=== PATIENT | female | born 1985 | race Caucasian/White ===

== ENCOUNTER 2017-04-14 11:16 | Emergency (ER) | payer OTHER ==
[2017-04-14 11:29] VITALS: BP 133/80
--- NOTE | 2017-04-14 12:26 | ED Physician Documentation ---
PD HPI LOWER EXT INJURY - Stated complaint Stated Complaint: LEFT FOOT INJ - Chief complaint Chief Complaint: Ext Problem - History obtained from History obtained from: Patient - History of Present Illness PD HPI LOW EXT INJURY LOCATION: Left, Foot Type of injury: Twist (inversion, when stepped into uneven groun area.) Timing - onset: How many days ago (2) Timing - duration: Days (2) Timing - details: Abrupt onset, Still present Worsened by: Moving, Palpating, Other (walking) Associated symptoms: Swelling. No: Weakness, Numbness Similar symptoms before: Has not had sx before Recently seen: Not recently seen PD PAST MEDICAL HISTORY - Allergies Allergies/Adverse Reactions: Allergies Allergy/AdvReac Type Severity Reaction Status Date / Time No Known Drug Allergies Allergy Verified 04/14/17 11:29 PD ED PE NORMAL - Vitals Vital signs reviewed: Yes - General General: Alert and oriented X 3, Well developed/nourished - Derm Derm: Normal color, Warm and dry - Extremities Extremities: Other (good color and cap refill in toes. Lateral left foot proximally with tenderness and mild swelling. No defromity. ) - Neuro Neuro: No motor deficit, No sensory deficit Results - Vitals Vitals: Vital Signs - 24 hr 04/14/17 11:26 Temperature 36.6 C Heart Rate 81 Respiratory 18 Rate Blood Pressure 133/80 H O2 Saturation 99 Oxygen O2 Source Room air - Rads (name of study) foot Radiology: Prelim report reviewed (no fracture) PD MEDICAL DECISION MAKING - ED course Complexity details: reviewed results (no fracture; sprain. Offered post op shoe for support. ), considered differential, d/w patient Departure - Departure Disposition: 01 Home, Self Care Clinical Impression: Sprain of left foot Qualifiers: Encounter type: initial encounter Qualified Code(s): S93.602A - Unspecified sprain of left foot, initial encounter Condition: Stable Record reviewed to determine appropriate education?: Yes Instructions: ED Sprain Foot Comments: Firm soled shoe or postop shoe for comfort. Tylenol or ibuprofen for pain. Activity as able and tolerated. This will likely take a week or 2 to get better. Recheck if not better during that time. Discharge Date/Time: 04/14/17 13:10
--- NOTE | 2017-04-14 12:32 | XRAY Preliminary Report ---
Exam: XR Foot 3 View LT IMPRESSION: 1. No acute osseous abnormalities. [facility] SITE ID: [id number]
--- NOTE | 2017-04-14 12:35 | XRAY Report ---
EXAM: LEFT FOOT RADIOGRAPHY EXAM DATE: 04/14/2017 12:18 PM. CLINICAL HISTORY: Left foot injury. COMPARISON: None. TECHNIQUE: 3 views. FINDINGS: Bones: No acute fracture or bony lesion. Posterior calcaneal spur. Joints: Normal. No subluxations. Soft Tissues: No radiopaque foreign bodies. Soft tissue swelling. IMPRESSION: 1. No acute osseous abnormalities. [facility] Referring Provider Line: [phone] SITE ID: [id number]
== END 2017-04-14 13:10 | disposition home or self-care (01) ==
LOC: ED 11:16
DX: S93.602A Unspecified sprain of left foot, initial encounter (principal); X58.XXXA Exposure to other specified factors, initial encounter
CPT/HCPCS: 99283

== ENCOUNTER 2017-12-19 09:20 | Outpatient (CLI) | payer OTHER ==
[2017-12-19 17:47] LABS: BASOPHILS % (AUTO) 0.3 %; EOSINOPHILS % (AUTO) 0.6 %; HGB - HEMOGLOBIN 13.5 g/dL (12.0-16.0); LYMPHOCYTES % (AUTO) 33.8 %; MEAN CORPUSCULAR HEMOGLOBIN 28.3 pg (27.0-31.0); MEAN CORPUSCULAR HGB CONC 33.4 g/dL (32.0-36.0); MEAN CORPUSCULAR VOLUME 84.8 fL (81.0-99.0); MEAN PLATELET VOLUME 8.6 fL (7.9-10.8); MONOCYTES # (AUTO) 0.6 10^3/uL (0.0-1.0); MONOCYTES % (AUTO) 9.3 %; NEUTROPHILS # (AUTO) 3.3 10^3/uL (1.5-6.6); PLT - PLATELET COUNT 242 10^3/uL (130-450); RED BLOOD COUNT 4.76 10^6/uL (4.20-5.40); RED CELL DISTRIBUTION WIDTH 12.9 % (12.0-15.0)
[2017-12-19 18:22] LABS: ALBUMIN 4.1 g/dL (3.2-5.5); ALBUMIN/GLOBULIN RATIO 1.3 (1.0-2.2); ALKALINE PHOSPHATASE 77 IU/L (42-121); ALT ALANINE AMINOTRANSFERASE 15 IU/L (10-60); AST ASPARTATE AMINOTRANSFERASE 17 IU/L (10-42); BILIRUBIN,TOTAL 0.6 mg/dL (0.2-1.0); BUN - BLOOD UREA NITROGEN 7 mg/dL (6-20); CALCIUM 8.7 mg/dL (8.5-10.3); CARBON DIOXIDE - CO2 24 mmol/L (21-32); CHLORIDE 105 mmol/L (101-111); CHOL/HDL RATIO 6.5 (<4.4); CHOLESTEROL 216 mg/dL; CREATININE 0.6 mg/dL (0.4-1.0); GFR - MDRD 116 (>89); GLUCOSE 91 mg/dL (70-100); HDL CHOLESTEROL 33 mg/dL; LDL CHOLESTEROL,CALCULATED 164 mg/dL; SODIUM 135 mmol/L (135-145); TOTAL PROTEIN 7.3 g/dL (6.7-8.2); VLDL CHOLESTEROL 19 mg/dL
== END 2017-12-19 09:21 | disposition home or self-care (01) ==
LOC: LAB.F 09:20
PROVIDERS: ATTEND Physician Assistant Medical
DX: Z00.00 Encounter for general adult medical examination without abnormal findings (principal)
CPT/HCPCS: 36415; 80053; 80061; 82306; 83721; 84443; 85025

== ENCOUNTER 2020-07-06 14:57 | Outpatient (CLI) | payer OTHER ==
[2020-07-06 15:33] LABS: BASOPHILS % (AUTO) 0.5 %; EOSINOPHILS % (AUTO) 0.5 %; HGB - HEMOGLOBIN 14.1 g/dL (12.0-16.0); LYMPHOCYTES # (AUTO) 1.7 10^3/uL (1.5-3.5); LYMPHOCYTES % (AUTO) 26.4 %; MEAN CORPUSCULAR HEMOGLOBIN 28.4 pg (27.0-31.0); MEAN CORPUSCULAR HGB CONC 33.2 g/dL (32.0-36.0); MEAN CORPUSCULAR VOLUME 85.5 fL (81.0-99.0); MONOCYTES # (AUTO) 0.4 10^3/uL (0.0-1.0); MONOCYTES % (AUTO) 5.3 %; NEUTROPHILS # (AUTO) 4.4 10^3/uL (1.5-6.6); PLT - PLATELET COUNT 246 10^3/uL (130-450); RED BLOOD COUNT 4.97 10^6/uL (4.20-5.40); RED CELL DISTRIBUTION WIDTH 12.7 % (12.0-15.0); WHITE BLOOD COUNT 6.6 x10^3/uL (4.8-10.8)
[2020-07-06 15:56] LABS: % IRON SATURATION 17 % (20-50); ALBUMIN 4.7 g/dL (3.2-5.5); ALBUMIN/GLOBULIN RATIO 1.4 (1.0-2.2); ALKALINE PHOSPHATASE 59 IU/L (42-121); ALT ALANINE AMINOTRANSFERASE 22 IU/L (10-60); AST ASPARTATE AMINOTRANSFERASE 20 IU/L (10-42); BILIRUBIN,TOTAL 1.1 mg/dL (0.2-1.0); BUN - BLOOD UREA NITROGEN 9 mg/dL (6-20); CALCIUM 9.3 mg/dL (8.5-10.3); CARBON DIOXIDE - CO2 22 mmol/L (21-32); CHLORIDE 107 mmol/L (101-111); CHOL/HDL RATIO 7.6 (<4.4); CHOLESTEROL 212 mg/dL; CREATININE 0.7 mg/dL (0.4-1.0); GLUCOSE 87 mg/dL (70-100); HDL CHOLESTEROL 28 mg/dL; IRON 62 ug/dL (28-170); LDL CHOLESTEROL,CALCULATED 163 mg/dL; LDL/HDL RATIO 5.8 (<4.4); SODIUM 139 mmol/L (135-145); TOTAL IRON BINDING CAPACITY 358 ug/dL (250-450); TRANSFERRIN 256 mg/dL (192-382); VLDL CHOLESTEROL 21 mg/dL
== END 2020-07-06 14:58 | disposition home or self-care (01) ==
LOC: LAB 14:57
PROVIDERS: ATTEND Obstetrics & Gynecology
DX: Z00.00 Encounter for general adult medical examination without abnormal findings (principal); K52.9 Noninfective gastroenteritis and colitis, unspecified; E55.9 Vitamin D deficiency, unspecified; Z31.69 Encounter for other general counseling and advice on procreation; Z13.1 Encounter for screening for diabetes mellitus
CPT/HCPCS: 36415; 80053; 80061; 82306; 83540; 83721; 84443; 84466; 85025; 86762; 86787

== ENCOUNTER 2020-07-12 09:09 | Outpatient (CLI) | payer OTHER | END 2020-07-12 09:10 | disposition home or self-care (01) | LOC: LAB 09:09 | PROVIDERS: ATTEND Obstetrics & Gynecology | DX: K51.50 Left sided colitis without complications (principal); Z20.828 Contact with and (suspected) exposure to other viral communicable diseases; Z13.1 Encounter for screening for diabetes mellitus | CPT/HCPCS: 36415; 82951 ==

== ENCOUNTER 2020-07-12 11:28 | Outpatient (CLI) | payer OTHER | END 2020-07-12 11:29 | disposition home or self-care (01) | LOC: COV 11:28 | PROVIDERS: ATTEND Internal Medicine Gastroenterology | DX: K51.50 Left sided colitis without complications (principal); Z20.828 Contact with and (suspected) exposure to other viral communicable diseases ==

== ENCOUNTER 2020-12-08 08:00 | Outpatient (CLI) | payer OTHER ==
[2020-12-08 15:59] LABS: MUDS CUTOFF CONCENTRATIONS CUTOFF CONC BELOW:
[2020-12-08 16:10] LABS: BILIRUBIN,URINE NEGATIVE (NEGATIVE); GLUCOSE, URINE (UA) NEGATIVE (NEGATIVE); KETONES,URINE (UA) NEGATIVE (NEGATIVE); LEUKOCYTE ESTERASE, URINE TRACE (NEGATIVE); NITRITE,URINE NEGATIVE (NEGATIVE); OCCULT BLOOD,URINE NEGATIVE (NEGATIVE); PROTEIN,URINE NEGATIVE (NEGATIVE); UROBILINOGEN,URINE 0.2 (NORMAL) E.U./dL (NORMAL)
[2020-12-08 16:20] LABS: AMPHETAMINE SCREEN,URINE NEGATIVE (NEGATIVE); BACTERIA,URINE None Seen /HPF (None Seen); BARBITURATE SCREEN,UR NEGATIVE (NEGATIVE); BENZODIAZEPINES SCREEN, URINE NEGATIVE (NEGATIVE); CLARITY,URINE CLEAR (CLEAR); COCAINE SCREEN URINE NEGATIVE (NEGATIVE); METHADONE SCREEN, URINE NEGATIVE (NEGATIVE); METHAMPHETAMINES SCREEN, URINE NEGATIVE (NEGATIVE); OPIATE SCREEN, URINE NEGATIVE (NEGATIVE); OXYCODONE SCREEN, URINE NEGATIVE (NEGATIVE); PROPOXYPHENE SCREEN, URINE NEGATIVE (NEGATIVE); RBC,URINE None Seen /HPF (0-5); SQUAMOUS EPITHELIAL CELL,UR RARE Squamous (<= Few); THC CANNABINOID SCREEN, URINE NEGATIVE (NEGATIVE); TRICYCLIC ANTIDEPRESSANT,URINE NEGATIVE (NEGATIVE); WBC,URINE 0-3 /HPF (0-5)
== END 2020-12-08 23:59 | disposition home or self-care (01) ==
LOC: LAB.R 08:00
PROVIDERS: ATTEND Advanced Practice Midwife
DX: Z32.01 Encounter for pregnancy test, result positive (principal)
CPT/HCPCS: 80306; 81001; 87086

== ENCOUNTER 2020-12-29 09:38 | Outpatient (CLI) | payer OTHER ==
--- NOTE | 2020-12-29 16:04 | Ultrasound Report ---
PROCEDURE: OB First Trimester w/TV INDICATIONS: POSITIVE TEST OUTSIDE/PRIOR DATING DATA: Last menstrual period (LMP): 11/08/2020. LMP-based estimated date of delivery (BK): 08/15/2021. First dating scan (date and location): 12/29/2020. Estimated date of delivery (BK) from first dating scan: 08/13/2021. TECHNIQUE: Real-time scanning was performed of the fetus and maternal pelvic organs, with image documentation. Endovaginal scanning was also performed to better visualize the fetus and maternal ovaries. COMPARISON: None FINDINGS: Embryo: There is a single living intrauterine gestation with a heart rate of 153 bpm. [place] mp length is 14 mm, corresponding to a 7 week 4 day gestation. Measurement variability in dating: +/- 4 weeks by LMP, +/- 7 days by mean sac diameter (use before 6 weeks gestation if crown-rump length not able to be measured), +/- 5 days by crown-rump length (6-12 weeks gestation). Possible small 6 mm diameter left uterine fibroid. Possible small 11 mm perigesta tional hemorrhage. Maternal organs: Ovaries left ovarian corpus luteal cyst. IMPRESSION: 1. Single living intrauterine gestation. 2. Possible small para gestational hemorrhage. 3. Small uterine fibroid. Reviewed by: Orquidea Poe MD on 12/29/2020 4:03 PM PDT Approved by: Orquidea Poe MD on 12/29/2020 4:03 PM PDT Station ID: [id number]
== END 2020-12-29 09:39 | disposition home or self-care (01) ==
LOC: DI 09:38
PROVIDERS: ATTEND Advanced Practice Midwife
DX: O34.11 Maternal care for benign tumor of corpus uteri, first trimester (principal); D25.9 Leiomyoma of uterus, unspecified; O34.81 Maternal care for other abnormalities of pelvic organs, first trimester; N83.12 Corpus luteum cyst of left ovary; Z3A.01 Less than 8 weeks gestation of pregnancy

== ENCOUNTER 2021-02-09 09:08 | Outpatient (CLI) | payer OTHER ==
[2021-02-09 09:39] LABS: BASOPHILS % (AUTO) 0.3 %; EOSINOPHILS # (AUTO) 0.1 10^3/uL (0.0-0.7); EOSINOPHILS % (AUTO) 0.6 %; HGB - HEMOGLOBIN 12.8 g/dL (12.0-16.0); LYMPHOCYTES % (AUTO) 25.6 %; MEAN CORPUSCULAR HEMOGLOBIN 29.5 pg (27.0-31.0); MEAN CORPUSCULAR HGB CONC 34.6 g/dL (32.0-36.0); MEAN CORPUSCULAR VOLUME 85.3 fL (81.0-99.0); MEAN PLATELET VOLUME 10.4 fL (7.9-10.8); MONOCYTES # (AUTO) 0.5 10^3/uL (0.0-1.0); NEUTROPHILS # (AUTO) 5.1 10^3/uL (1.5-6.6); NEUTROPHILS % (AUTO) 66.4 %; PLT - PLATELET COUNT 226 10^3/uL (130-450); RED BLOOD COUNT 4.34 10^6/uL (4.20-5.40); RED CELL DISTRIBUTION WIDTH 12.6 % (12.0-15.0); WHITE BLOOD COUNT 7.7 x10^3/uL (4.8-10.8)
[2021-02-10 07:51] LABS: HIV AG/AB 4TH GEN NON-REACTIVE (NON-REACTIVE)
[2021-02-10 12:17] LABS: HEPATITIS B SURFACE ANTIGEN NON-REACTIVE (NON-REACTIVE); HEPATITIS C ANTIBODY NON-REACTIVE (NON-REACTIVE)
== END 2021-02-09 09:09 | disposition home or self-care (01) ==
LOC: LAB 09:08
PROVIDERS: ATTEND Obstetrics & Gynecology
DX: Z36.89 Encounter for other specified antenatal screening (principal)
CPT/HCPCS: 36415; 85025; 86592; 86762; 86803; 86850; 86900; 86901; 87340; 87389

== ENCOUNTER 2021-02-16 09:06 | Outpatient (CLI) | payer OTHER | END 2021-02-16 09:07 | disposition home or self-care (01) | LOC: LAB 09:06 | PROVIDERS: ATTEND Obstetrics & Gynecology | DX: O09.511 Supervision of elderly primigravida, first trimester (principal) | CPT/HCPCS: 86787 ==

== ENCOUNTER 2021-03-19 07:51 | Outpatient (CLI) | payer OTHER | END 2021-03-19 07:52 | disposition home or self-care (01) | LOC: LAB 07:51 | PROVIDERS: ATTEND Obstetrics & Gynecology | DX: O09.511 Supervision of elderly primigravida, first trimester (principal) | CPT/HCPCS: 81599 ==

== ENCOUNTER 2021-04-12 19:27 | Outpatient (CLI) | payer OTHER ==
--- NOTE | 2021-04-13 10:52 | Ultrasound Report ---
PROCEDURE: OB Detailed Eval INDICATIONS: SUPERVISION OF HIGH RISK OUTSIDE/PRIOR DATING DATA: Last menstrual period (LMP): 11/08/2020. LMP-based estimated date of delivery (BK): 08/15/2021. First dating scan (date and location): 12/29/2020. Estimated date of delivery (BK) from first dating scan: 08/13/2021. The below data below was generated using the 08/13/2021 BK of ultrasound dated 12/29/2020 TECHNIQUE: Real-time scanning was performed of the fetus, with image documentation and biometric measurements. Endovaginal scanning: No COMPARISON: Prior OB ultrasound dated 12/29/2020 FINDINGS: General: A single living intrauterine gestation is present. Presentation: Breech Placenta: Placental position is anterior, without previa. Amniotic fluid index: 17.9 cm, normal for gestational age. heart rate: 152 beats per minute. Maternal cervical canal: 3.9 cm long; normal length is 2.5 cm or more. biometrics: Biparietal diameter: 22 weeks 6 days Head circumference: 23 weeks 4 days Abdominal circumference: 22 weeks 6 days Femur length: 22 weeks 6 days Estimated gestational age from initial scan: 22 weeks 3 days Composite gestational age from present scan: 22 weeks 6 days Estimated weight and percentile: 547 g; 69 percentile Measurement variability in biometric dating: +/- 10 days from 12-20 weeks gestation, +/- 2 weeks from 20-30 weeks gestation, +/- 3 weeks at 30 weeks gestation or later. Anatomic survey: Neuro: Ventricles are normal at less than 10 mm. Cisterna magna is normal at 3-11 mm. Cerebellum i s normal in size and morphology. Nuchal skin fold: Normal at less than 6 mm between 14 and 20 weeks gestational age. Face: Nose and lips, facial profile are normal. Spine: No evidence for spina bifida. Heart: 4-chambered heart is present, with normal ventricular outflow tracts. Diaphragm: Diaphragm is intact. Stomach: Left-sided stomach is present. Kidneys: Suboptimally visualized. Cord: 3 vessel cord has orthotopic insertion. Bladder: Normal in size. Extremities: All 4 extremities are visualized. IMPRESSION: 1. Single living IUP redemonstrated and interval growth is normal. 2. Kidneys not well visualized; otherwise normal anatomy. Follow-up recommended. Reviewed by: MOON Nava on 04/13/2021 10:50 AM PDT Approved by: Ilan Tran on 04/13/2021 10:50 AM PDT Station ID: [id number]
== END 2021-04-12 19:28 | disposition home or self-care (01) ==
LOC: DI 19:27
PROVIDERS: ATTEND Obstetrics & Gynecology
DX: O09.92 Supervision of high risk pregnancy, unspecified, second trimester (principal); Z3A.22 22 weeks gestation of pregnancy

== ENCOUNTER 2021-04-26 18:42 | Outpatient (CLI) | payer OTHER ==
--- NOTE | 2021-04-27 09:34 | Ultrasound Report ---
PROCEDURE: OB F/U or Repeat INDICATIONS: SUPERVISION OF HIGH RISK OUTSIDE/PRIOR DATING DATA: Last menstrual period (LMP): 11/08/2020. LMP-based estimated date of delivery (BK): 08/15/2021. First dating scan (date and location): 12/29/2020. Estimated date of delivery (BK) from first dating scan: 08/13/2021. The below data below was generated using the first trimester BK of 08/13/2021 TECHNIQUE: Real-time scanning was performed of the fetus, with image documentation and biometric measurements. Endovaginal scanning: Not performed COMPARISON: 12/29/2020, 04/12/2021 FINDINGS: General: A single living intrauterine gestation is present. Presentation: Variable Placenta: Placental position is anterior, without previa. Amniotic fluid index: 13.3 cm, normal for gestational age. heart rate: 145 beats per minute. Maternal cervical canal: Closed and 3.7 cm long; normal length is 2.5 cm or more. Other: Imaging of the kidneys demonstrates possible bilateral hydronephrosis with renal pelvis measuring 7 mm in the right and 8 mm on the left. No cystic changes in either renal fossa or perineph betsy fluid. The urinary bladder appears appropriate on the single given image. IMPRESSION: 1. Possible mild bilateral hydronephrosis. Follow-up in the third trimester is recommended. Reviewed by: Glenda Apodaca MD on 04/27/2021 9:33 AM PDT Approved by: Glenda Apodaca MD on 04/27/2021 9:33 AM PDT Station ID: [id number]
== END 2021-04-26 18:43 | disposition home or self-care (01) ==
LOC: DI 18:42
PROVIDERS: ATTEND Obstetrics & Gynecology
DX: O09.90 Supervision of high risk pregnancy, unspecified, unspecified trimester (principal)

== ENCOUNTER 2021-05-08 07:33 | Outpatient (CLI) | payer OTHER ==
[2021-05-08 09:06] LABS: HCT - HEMATOCRIT 35.7 % (37.0-47.0); HGB - HEMOGLOBIN 12.1 g/dL (12.0-16.0); MEAN CORPUSCULAR HEMOGLOBIN 29.8 pg (27.0-31.0); MEAN CORPUSCULAR HGB CONC 33.9 g/dL (32.0-36.0); MEAN CORPUSCULAR VOLUME 87.9 fL (81.0-99.0); MEAN PLATELET VOLUME 9.9 fL (7.9-10.8); RED BLOOD COUNT 4.06 10^6/uL (4.20-5.40); RED CELL DISTRIBUTION WIDTH 13.3 % (12.0-15.0); WHITE BLOOD COUNT 11.4 x10^3/uL (4.8-10.8)
== END 2021-05-08 07:34 | disposition home or self-care (01) ==
LOC: LAB 07:33
PROVIDERS: ATTEND Obstetrics & Gynecology
DX: O09.90 Supervision of high risk pregnancy, unspecified, unspecified trimester (principal)
CPT/HCPCS: 36415; 82950; 85027; 86850

== ENCOUNTER 2021-05-23 07:23 | Outpatient (CLI) | payer OTHER ==
[2021-05-23 07:51] LABS: GTT GLUCOSE,FASTING 85 mg/dL (70-100)
== END 2021-05-23 07:24 | disposition home or self-care (01) ==
LOC: LAB 07:23
PROVIDERS: ATTEND Obstetrics & Gynecology
DX: O09.90 Supervision of high risk pregnancy, unspecified, unspecified trimester (principal); O99.810 Abnormal glucose complicating pregnancy
CPT/HCPCS: 36415; 82951; 82952

== ENCOUNTER 2021-06-11 18:44 | Outpatient (CLI) | payer OTHER ==
[2021-06-11 20:01] VITALS: BP 111/64
--- NOTE | 2021-06-14 15:33 | PROCEDURE REPORT ---
- HPI Diagnosis/Indication for NST: Other (GDM and ulcerative colitis) Current EDU 08/15/21 Gestation 30 Weeks and 5 Days 1 Para 0 Vital Signs Temperature 98.3 F 06/11/21 20:00 Heart Rate 74 06/11/21 20:00 Respiratory Rate 18 06/11/21 20:00 Blood Pressure 111/64 06/11/21 20:00 O2 Saturation 100 06/11/21 20:00 Temperature 98.3 F 06/11/21 20:00 Heart Rate 74 06/11/21 20:00 Respiratory Rate 18 06/11/21 20:00 Blood Pressure 111/64 06/11/21 20:00 O2 Saturation 100 06/11/21 20:00 - NST Procedure NST Procedure Start Date 06/11/21 Start Time 19:55 Stop Time 20:40 Vibroacoustic Stimulation Used No Patient States Movement Yes EFM 135 mod dom[place]uez 15x15 accels no decels TOCO: quiet - Results and Plan Findings/Impression: Patient is a 35 yo at 30+5 with affected by ulcerative colitis and gestational diabetes, here for NST Cat I tracing Cont with twice weekly NST and weekly MARS DOS: 06/11/21 NST read 06/11/21 DX: IUP at 30+5 wga Ulcerative colitis GDM
== END 2021-06-11 20:45 | disposition home or self-care (01) ==
LOC: WFO 18:44 → FBP 19:44 → WFO 20:45
PROVIDERS: ATTEND Obstetrics & Gynecology
DX: O24.419 Gestational diabetes mellitus in pregnancy, unspecified control (principal); O99.613 Diseases of the digestive system complicating pregnancy, third trimester; K51.90 Ulcerative colitis, unspecified, without complications; Z3A.30 30 weeks gestation of pregnancy; O09.513 Supervision of elderly primigravida, third trimester; O35.8XX0 Maternal care for other (suspected) fetal abnormality and damage, not applicable or unspecified
CPT/HCPCS: 59025

== ENCOUNTER 2021-06-11 19:11 | Outpatient (CLI) | payer OTHER ==
--- NOTE | 2021-06-12 12:29 | Ultrasound Report ---
PROCEDURE: OB F/U or Repeat INDICATIONS: SUPERVISION OF HIGH RISK OUTSIDE/PRIOR DATING DATA: Last menstrual period (LMP): 11/08/2020. LMP-based estimated date of delivery (BK): 08/15/2021. First dating scan (date and location): 12/29/2020. Estimated date of delivery (BK) from first dating scan: 08/13/2021. The below data below was generated using the clinical BK of 08/13/2021 TECHNIQUE: Real-time scanning was performed of the fetus, with image documentation and biometric measurements. COMPARISON: OB ultrasound 12/29/2021, 04/26/2021 FINDINGS: General: A single living intrauterine gestation is present. Presentation: Vertex Placenta: Placental position is anterior, without previa. Amniotic fluid index: 14.3 cm, within normal limits for gestational age. Largest pocket 5.3 cm. heart rate: 155 beats per minute. Maternal cervical canal: 4.4 cm long; normal length is 2.5 cm or more. biometrics: Biparietal diameter: 8.0 cm 32 weeks 1 day Head circumference: 30.5 cm 34 weeks 0 days Abdominal circumference: 27.4 cm 31 weeks 3 days Femur length: 6.2 cm 32 weeks 2 days Estimated gestational age from initial scan: 31 weeks 0 days Composite gestational age from present scan: 32 weeks 3 days Estimated weight and percentile: 1887g 73rd percentile Measurement variability in biometric dating: +/- 10 days from 12-20 weeks gestation, +/- 2 weeks from 20-30 weeks gestation, +/- 3 weeks at 30 weeks gestation or more. Other: Left renal pelvocaliectasis remains present measuring 8 mm, unchanged from 04/26/2021. Right ki dney pelvocaliectasis has decreased to 4 mm compared to 7 mm on 04/26/2021. IMPRESSION: 1. Single live intrauterine . 2. Stable left renal pelvocaliectasis. Decreased prominence of right renal pelvocaliectasis. Reviewed by: Jo Ann Aguila MD on 06/12/2021 12:28 PM PDT Approved by: Jo Ann Aguila MD on 06/12/2021 12:28 PM PDT Station ID: [id number]
== END 2021-06-11 19:12 | disposition home or self-care (01) ==
LOC: DI 19:11
PROVIDERS: ATTEND Obstetrics & Gynecology
DX: O09.93 Supervision of high risk pregnancy, unspecified, third trimester (principal); O35.8XX0 Maternal care for other (suspected) fetal abnormality and damage, not applicable or unspecified; Z3A.32 32 weeks gestation of pregnancy

== ENCOUNTER 2021-06-24 11:14 | Outpatient (CLI) | payer OTHER ==
--- NOTE | 2021-06-24 13:30 | Ultrasound Report ---
PROCEDURE: OB Limited INDICATIONS: GESTATIONAL DIABETES OUTSIDE/PRIOR DATING DATA: Last menstrual period (LMP): 11/08/2020. LMP-based estimated date of delivery (BK): 08/15/2021. First dating scan (date and location): 12/29/2020. Estimated date of delivery (BK) from first dating scan: 08/13/2021. The below data below was generated using the ultrasound BK of 08/13/2021 TECHNIQUE: Real-time scanning was performed of the fetus, with image documentation. COMPARISON: OB ultrasound 04/26/2021, 04/30/2021, 04/12/2021 FINDINGS: A single living intrauterine gestation is present. Presentation: Vertex Placenta: Placental position is anterior, without previa. Amniotic fluid index: 14.8 cm cm, within normal limits for gestational age. Largest pocket 5.5 cm heart rate: 143 beats per minutes. Maternal cervical canal: 3.7 cm long; normal length is 2.5 cm or more. Estimated gestational age from initial scan: 32 weeks 6 days Miscellaneous: Left pelvocaliectasis measures 7 mm compared to 8 mm on prior exam. No visualized righ t renal pelvocaliectasis. IMPRESSION: 1. Single live intrauterine . 2. 7 mm left pelvocaliectasis compared to 8 mm on prior exam. No visualized right pelvocaliectasis. Reviewed by: Jo Ann Aguila MD on 06/24/2021 1:28 PM PDT Approved by: Jo Ann Aguila MD on 06/24/2021 1:28 PM PDT Station ID: [id number]
== END 2021-06-24 11:15 | disposition home or self-care (01) ==
LOC: DI 11:14
PROVIDERS: ATTEND Obstetrics & Gynecology
DX: O09.93 Supervision of high risk pregnancy, unspecified, third trimester (principal); O24.419 Gestational diabetes mellitus in pregnancy, unspecified control; Z3A.32 32 weeks gestation of pregnancy

== ENCOUNTER 2021-06-27 10:03 | Outpatient (CLI) | payer OTHER ==
[2021-06-27 11:14] LABS: BASOPHILS % (AUTO) 0.3 %; EOSINOPHILS % (AUTO) 0.3 %; HCT - HEMATOCRIT 36.7 % (37.0-47.0); HGB - HEMOGLOBIN 12.4 g/dL (12.0-16.0); LYMPHOCYTES # (AUTO) 1.4 10^3/uL (1.5-3.5); LYMPHOCYTES % (AUTO) 16.4 %; MEAN CORPUSCULAR HEMOGLOBIN 29.6 pg (27.0-31.0); MEAN CORPUSCULAR HGB CONC 33.8 g/dL (32.0-36.0); MEAN CORPUSCULAR VOLUME 87.6 fL (81.0-99.0); MEAN PLATELET VOLUME 10.2 fL (7.9-10.8); MONOCYTES # (AUTO) 0.6 10^3/uL (0.0-1.0); MONOCYTES % (AUTO) 6.8 %; NEUTROPHILS # (AUTO) 6.5 10^3/uL (1.5-6.6); NEUTROPHILS % (AUTO) 75.7 %; PLT - PLATELET COUNT 200 10^3/uL (130-450); RED BLOOD COUNT 4.19 10^6/uL (4.20-5.40); RED CELL DISTRIBUTION WIDTH 13.8 % (12.0-15.0); WHITE BLOOD COUNT 8.6 x10^3/uL (4.8-10.8)
[2021-06-27 11:25] LABS: ALBUMIN 3.2 g/dL (3.2-5.5); BILIRUBIN,TOTAL 0.9 mg/dL (0.2-1.0); CALCIUM 9.2 mg/dL (8.5-10.3); CREATININE 0.6 mg/dL (0.4-1.0); POTASSIUM 3.8 mmol/L (3.5-5.0); TOTAL PROTEIN 6.4 g/dL (6.7-8.2)
--- NOTE | 2021-06-27 11:44 | PROVIDER PROGRESS NOTE ---
- HPI Chief Complaint: Hypertension/PIH Current : Vital Signs Temperature 98.6 F 06/27/21 10:16 Temperature 98.6 F 06/27/21 10:17 Heart Rate 85 06/27/21 10:17 Respiratory Rate 18 06/27/21 10:17 Blood Pressure 126/76 06/27/21 10:17 O2 Saturation 98 06/27/21 10:17 - Exam 35yo at 33 0/7 weeks presented to labor and delivery from clinic due to two elevated systolic blood pressures in clinic. Patient is Advanced Maternal Age and has Gestational Diabetes, diet controlled. Patient had systolic blood pressure of 148 and the next one was 140. Diastolic blood pressure has been normal. Patient denies headache, blurred vision, visual changes, upper abdominal pain. Patient reports good movement. Patient denies contractions, SROM or vaginal bleeding. O- VSS, blood pressure 126/76, 116/74 General: Patient is comfortable and in no acute distress. Chest: Clear to auscultation. Good breath sounds in all [place]. Heart: RRR without murmur or gallop. Abdomen: Soft, non-tender, Gravid. Extremities: No edema, no calf tenderness Neuro: Reflexes +1/+4 WBC is 8.6, HGB is 12.4, HCT is 36.7, Platelets are 200 thousand CMP is within normal limits and AST is 13 and ALT is 11. Glucose is 76. Protein/Creatinine ratio is 0.2 Monitor: Baseline 140's with moderate variability and accelerations are present. No decelerations. No contractions. Category I monitor strip. Reactive NST. A-IUP 33 0/7 with Advanced Maternal Age, Gestational Diabetes and had Elevated Systolic blood pressure today. P- Discharge to home. Keep all scheduled clinic appointments. Continue recording glucose levels. Keep all NST appointments. - Procedures OB Procedure Performed: NST Diagnosis/Indication for NST: Other (Hypertension in clinic with elevated Systolic times two.) NST Procedure: 10:20 am until 10:50 am Baseline 140 with Moderate variability. Accelerations 15X15. No decelerations. No contractions. Reactive NST. Category I monitor strip.
[2021-06-27 12:20] LABS: CREATININE,URINE 40.6 mg/dL; PROTEIN/CREATININE RATIO,URINE 0.2 (<=0.2)
[2021-06-27 13:13] VITALS: BP 127/71
== END 2021-06-27 12:55 | disposition home or self-care (01) ==
LOC: WFO 10:03 → FBP 10:06 → WFO 12:55
PROVIDERS: ATTEND Obstetrics & Gynecology
DX: O13.3 Gestational [pregnancy-induced] hypertension without significant proteinuria, third trimester (principal); Z3A.33 33 weeks gestation of pregnancy; O24.410 Gestational diabetes mellitus in pregnancy, diet controlled; O09.513 Supervision of elderly primigravida, third trimester
CPT/HCPCS: 36415; 59025; 80053; 82570; 84156; 85025; 99215

== ENCOUNTER 2021-07-01 11:30 | Outpatient (CLI) | payer OTHER ==
--- NOTE | 2021-07-01 14:00 | Ultrasound Report ---
PROCEDURE: OB Limited INDICATIONS: GDM. Weekly [place] OUTSIDE/PRIOR DATING DATA: Last menstrual period (LMP): 11/08/2020. LMP-based estimated date of delivery (BK): 08/15/2021. First dating scan (date and location): 12/29/2020. Estimated date of delivery (BK) from first dating scan: 08/13/2021. The below data below was generated using the ultrasound BK of 08/13/2021 TECHNIQUE: Real-time scanning was performed of the fetus, with image documentation. COMPARISON: Numerous priors, including 06/24/2021, 06/11/2021, and 04/26/2021. FINDINGS: A single live intrauterine gestation is present. Presentation: Vertex Placenta: Placental position is anterior, without previa. Amniotic fluid index: 14.1 cm, within normal limits for gestational age. heart rate: 145 beats per minutes. Maternal cervical canal: Not well seen. Left kidney pelvocaliectasis is stable at 7 mm. IMPRESSION: The MARS is within normal limits at 14.1 cm. Reviewed by: Arnaud Rob MD on 07/01/2021 12:59 PM MEÑO Approved by: Arnaud Rob MD on 07/01/2021 12:59 PM MEÑO Station ID: [id number]
== END 2021-07-01 23:59 | disposition home or self-care (01) ==
LOC: DI 11:30
PROVIDERS: ATTEND Obstetrics & Gynecology
DX: O24.419 Gestational diabetes mellitus in pregnancy, unspecified control (principal); O09.90 Supervision of high risk pregnancy, unspecified, unspecified trimester; Z67.91 Unspecified blood type, Rh negative; O99.619 Diseases of the digestive system complicating pregnancy, unspecified trimester; K51.90 Ulcerative colitis, unspecified, without complications; Z3A.00 Weeks of gestation of pregnancy not specified

== ENCOUNTER 2021-07-02 09:19 | Outpatient (CLI) | payer OTHER ==
[2021-07-02 10:37] VITALS: BP 132/74
--- NOTE | 2021-07-02 10:42 | PROCEDURE REPORT ---
- HPI Diagnosis/Indication for NST: Gestational Diabetes Vital Signs Temperature 97.5 F L 07/02/21 10:32 Heart Rate 85 07/02/21 10:32 Respiratory Rate 17 07/02/21 10:32 Blood Pressure 132/74 H 07/02/21 10:32 O2 Saturation 98 07/02/21 10:32 Temperature 97.5 F L 07/02/21 10:32 Heart Rate 85 07/02/21 10:32 Respiratory Rate 17 07/02/21 10:32 Blood Pressure 132/74 H 07/02/21 10:32 O2 Saturation 98 07/02/21 10:32 - NST Procedure NST Procedure Start Date 07/02/21 Start Time 09:30 Stop Time 09:54 Vibroacoustic Stimulation Used No Patient presents for NST due to GDM. NST: Baseline FHT's are 140 with moderate variability and Accelerations 15X15 are present. No decelerations. One contraction seen that patient did not feel. Reactive NST, Category I monitor strip. - Results and Plan Findings/Impression: A/P- Reactive NST P-Keep all clinic and monitoring appointments.
== END 2021-07-02 09:56 | disposition home or self-care (01) ==
LOC: WFO 09:19 → FBP 09:47 → WFO 09:56
PROVIDERS: ATTEND Obstetrics & Gynecology
DX: O24.419 Gestational diabetes mellitus in pregnancy, unspecified control (principal); Z3A.00 Weeks of gestation of pregnancy not specified
CPT/HCPCS: 59025

== ENCOUNTER 2021-07-05 09:20 | Outpatient (CLI) | payer OTHER ==
[2021-07-05 09:31] VITALS: BP 114/80
--- NOTE | 2021-07-05 12:23 | PROCEDURE REPORT ---
- HPI Diagnosis/Indication for NST: Gestational Diabetes Current EDU 08/15/21 Gestation 34 Weeks and 1 Days 1 Para 0 Vital Signs Temperature 98.0 F 07/05/21 09:28 Heart Rate 89 07/05/21 09:28 Respiratory Rate 16 07/05/21 09:28 Blood Pressure 114/80 07/05/21 09:28 O2 Saturation 99 07/05/21 09:28 Temperature 98.1 F 07/05/21 09:31 Heart Rate 89 07/05/21 09:28 Respiratory Rate 16 07/05/21 09:28 Blood Pressure 114/80 07/05/21 09:28 O2 Saturation 99 07/05/21 09:28 - NST Procedure NST Procedure Start Date 07/05/21 Start Time 09:27 Stop Time 10:10 Vibroacoustic Stimulation Used No Patient States Movement Yes 35yo at 34 1/7 with Gestational Diabetes presents for NST. Patient is without complaints. NST: heart rate baseline is 135 with moderate variability. Accelerations are present. No decelerations. No contractions. Reactive NST, Category I strip. Keep all clinic and monitoring appointments.
== END 2021-07-05 10:10 | disposition home or self-care (01) ==
LOC: WFO 09:20 → FBP 09:22 → WFO 10:10
PROVIDERS: ATTEND Obstetrics & Gynecology
DX: O24.419 Gestational diabetes mellitus in pregnancy, unspecified control (principal); O09.513 Supervision of elderly primigravida, third trimester; Z3A.34 34 weeks gestation of pregnancy
CPT/HCPCS: 59025

== ENCOUNTER 2021-07-09 09:23 | Outpatient (CLI) | payer OTHER ==
[2021-07-09 10:09] VITALS: BP 113/71
--- NOTE | 2021-07-09 10:56 | PROCEDURE REPORT ---
- HPI Diagnosis/Indication for NST: Gestational Diabetes Current EDU 08/15/21 Gestation 34 Weeks and 5 Days 1 Para 0 Vital Signs Temperature 97.7 F 07/09/21 09:37 Heart Rate 72 07/09/21 09:37 Respiratory Rate 18 07/09/21 09:37 Blood Pressure 111/65 07/09/21 09:37 O2 Saturation 94 07/09/21 09:37 Temperature 97.7 F 07/09/21 10:08 Heart Rate 73 07/09/21 10:08 Respiratory Rate 18 07/09/21 10:08 Blood Pressure 113/71 07/09/21 10:08 O2 Saturation 94 07/09/21 09:37 - NST Procedure NST Procedure Start Date 07/09/21 Start Time 09:30 Stop Time 09:50 Vibroacoustic Stimulation Used No Patient States Movement Yes 35yo here for NST due for GDM and AMA. Patient is 34 5/7 today. Patient is without complaints. NST: Baseline heart rate is 140 with moderate variability. Accelertations 15X15 are present. No decelerations. NST is Reactive and Category I strip. A-IUP 34 5/7 with GDM and Advanced Maternal Age. P- Keep all clinic and monitoring appointments.
== END 2021-07-09 10:03 | disposition home or self-care (01) ==
LOC: WFO 09:23 → FBP 09:25 → WFO 10:03
PROVIDERS: ATTEND Obstetrics & Gynecology
DX: O24.419 Gestational diabetes mellitus in pregnancy, unspecified control (principal); O09.513 Supervision of elderly primigravida, third trimester; Z3A.34 34 weeks gestation of pregnancy
CPT/HCPCS: 59025

== ENCOUNTER 2021-07-10 18:43 | Outpatient (CLI) | payer OTHER | END 2021-07-10 18:44 | disposition home or self-care (01) | LOC: DI 18:43 | PROVIDERS: ATTEND Obstetrics & Gynecology | DX: Z53.9 Procedure and treatment not carried out, unspecified reason (principal) ==

== ENCOUNTER 2021-07-10 18:45 | Outpatient (CLI) | payer OTHER ==
--- NOTE | 2021-07-11 09:35 | Ultrasound Report ---
PROCEDURE: OB F/U or Repeat INDICATIONS: SUPERVISION OF OUTSIDE/PRIOR DATING DATA: Last menstrual period (LMP): November 08, 2020. LMP-based estimated date of delivery (BK): August 15, 2021. First dating scan (date and location): [facility]; July 10, 2021. Estimated date of delivery (BK) from first dating scan: August 13, 2021. The below data below was generated using the ultrasound BK of August 13, 2021 TECHNIQUE: Real-time scanning was performed of the fetus, with image documentation and biometric measurements. COMPARISON: July 01, 2021 FINDINGS: General: A single living intrauterine gestation is present. Presentation: Cephalic Placenta: Placental position is anterior, without previa. Amniotic fluid index: 13.8 cm, appropriate for gestational age. heart rate: 137 beats per minute. Maternal cervical canal: Not well seen. biometrics: Biparietal diameter: 8.7 cm Head circumference: 32.9 cm Abdominal circumference: 30.1 cm Femur length: 6.9 cm Estimated gestational age from initial scan: not applicable. Composite gestational age from present scan: 35 weeks, 4 days Estimated weight and percentile: 2558.4 g +/- 3 179 g; 42nd percentile Measurement variability in biometric dating: +/- 10 days from 12-20 weeks gestation, +/- 2 weeks from 20-30 weeks gestation, +/- 3 weeks at 30 weeks gestation or more. Other: Not applicable. IMPRESSION: Live single intrauterine gestation as detailed above. Reviewed by: Mil Miller MD on 07/11/2021 9:33 AM PDT Approved by: Mil Miller MD on 07/11/2021 9:33 AM PDT Station ID: [id number]
== END 2021-07-10 18:46 | disposition home or self-care (01) ==
LOC: DI 18:45
PROVIDERS: ATTEND Obstetrics & Gynecology
DX: O09.93 Supervision of high risk pregnancy, unspecified, third trimester (principal); O24.419 Gestational diabetes mellitus in pregnancy, unspecified control; Z3A.35 35 weeks gestation of pregnancy

== ENCOUNTER 2021-07-12 09:19 | Outpatient (CLI) | payer OTHER ==
[2021-07-12 09:34] VITALS: BP 134/74
--- NOTE | 2021-07-12 09:50 | PROCEDURE REPORT ---
- HPI Diagnosis/Indication for NST: Gestational Diabetes Vital Signs Temperature 97.9 F 07/12/21 09:30 Heart Rate 83 07/12/21 09:30 Respiratory Rate 17 07/12/21 09:30 Temperature 97.9 F 07/12/21 09:30 Heart Rate 83 07/12/21 09:30 Respiratory Rate 17 07/12/21 09:30 Blood Pressure 134/74 H 07/12/21 09:34 O2 Saturation - NST Procedure NST Procedure Start Time 09:30 Stop Time 09:50 NST: 145 beats per minute baseline, moderate variability, accelerations present, no decelerations. Reactive. [place]: Quiescent - Results and Plan Plan: Patient is a 35-year-old G1, P0 at 35 weeks 1 day gestation here for scheduled NST. NST Performed 07/12/2021 NST Read 07/12/2021 Diagnosis 35 weeks gestation A1 gestational diabetes managed with diet exercise Rh- Ulcerative colitis Plan Continue with scheduled surveillance Reactive NST
== END 2021-07-12 10:00 | disposition home or self-care (01) ==
LOC: WFO 09:19 → FBP 09:23 → WFO 10:00
PROVIDERS: ATTEND Obstetrics & Gynecology
DX: O24.410 Gestational diabetes mellitus in pregnancy, diet controlled (principal); O99.613 Diseases of the digestive system complicating pregnancy, third trimester; K51.90 Ulcerative colitis, unspecified, without complications; O26.893 Other specified pregnancy related conditions, third trimester; Z67.91 Unspecified blood type, Rh negative; Z3A.35 35 weeks gestation of pregnancy
CPT/HCPCS: 59025

== ENCOUNTER 2021-07-15 11:14 | Outpatient (CLI) | payer OTHER ==
--- NOTE | 2021-07-15 15:20 | Ultrasound Report ---
PROCEDURE: OB Limited INDICATIONS: GESTATIONAL DIABETES OUTSIDE/PRIOR DATING DATA: Last menstrual period (LMP): 11/08/2020. LMP-based estimated date of delivery (BK): 08/15/2021. First dating scan (date and location): 12/29/2020. Estimated date of delivery (BK) from first dating scan: 08/13/2021. The below data below was generated using the ultrasound BK of 08/13/2021 TECHNIQUE: Real-time scanning was performed of the fetus, with image documentation. COMPARISON: Several priors, including 07/10/2021, 07/01/2021, and 06/24/2021. FINDINGS: A single live intrauterine gestation is present. Presentation: Vertex Placenta: Placental position is anterior, without previa. Amniotic fluid index: 12.7 cm, within normal limits for gestational age. (Largest pocket, 4.4 cm) heart rate: 158 beats per minutes. Maternal cervical canal: Not seen Bilateral prominent renal pelvis can be seen, measuring 9 mm on the left and 6 mm on the right. IMPRESSION: The MARS is 12.7 cm, within normal limits. Prominence of the renal pelvis can be seen involving both sides of the fetus. Reviewed by: Arnaud Rob MD on 07/15/2021 2:19 PM MEÑO Approved by: Arnaud Rob MD on 07/15/2021 2:19 PM MEÑO Station ID: [id number]
== END 2021-07-15 11:15 | disposition home or self-care (01) ==
LOC: DI 11:14
PROVIDERS: ATTEND Obstetrics & Gynecology
DX: O09.90 Supervision of high risk pregnancy, unspecified, unspecified trimester (principal); O24.419 Gestational diabetes mellitus in pregnancy, unspecified control; Z67.91 Unspecified blood type, Rh negative; O99.619 Diseases of the digestive system complicating pregnancy, unspecified trimester; K51.90 Ulcerative colitis, unspecified, without complications

== ENCOUNTER 2021-07-16 09:18 | Outpatient (CLI) | payer OTHER ==
[2021-07-16 09:26] VITALS: BP 134/84
--- NOTE | 2021-07-21 10:29 | PROCEDURE REPORT ---
- HPI Diagnosis/Indication for NST: Gestational Diabetes Current EDU 08/15/21 Gestation 35 Weeks and 5 Days 1 Para 0 Vital Signs Temperature 98.2 F 07/16/21 09:25 Heart Rate 77 07/16/21 09:25 Respiratory Rate 17 07/16/21 09:25 Blood Pressure 134/84 H 07/16/21 09:25 O2 Saturation 99 07/16/21 09:25 Temperature 98.2 F 07/16/21 09:30 Heart Rate 77 07/16/21 09:25 Respiratory Rate 17 07/16/21 09:25 Blood Pressure 134/84 H 07/16/21 09:25 O2 Saturation 99 07/16/21 09:25 - NST Procedure NST Procedure Start Date 07/16/21 Start Time 09:23 Stop Time 09:47 Vibroacoustic Stimulation Used No Patient States Movement Yes EFM 130 mod [place] 15x15 accels no decels TOCO; quiet - Results and Plan Findings/Impression: Patient is a 35 yo at 35+5 wga with a affected by ulcerative colitis and A1DM here for NST Cat I tracing Cont with twice weekly NST and weekly MARS DX: IUP at 35+5 wga A1DM Ulcerative colitis AMA NST read 07/16/21 DOS 07/16/21
== END 2021-07-16 09:45 | disposition home or self-care (01) ==
LOC: WFO 09:18 → FBP 09:20 → WFO 09:45
PROVIDERS: ATTEND Obstetrics & Gynecology
DX: O24.410 Gestational diabetes mellitus in pregnancy, diet controlled (principal); O99.613 Diseases of the digestive system complicating pregnancy, third trimester; K51.90 Ulcerative colitis, unspecified, without complications; Z3A.35 35 weeks gestation of pregnancy
CPT/HCPCS: 59025

== ENCOUNTER 2021-07-18 08:00 | Outpatient (CLI) | payer OTHER | END 2021-07-18 23:59 | disposition home or self-care (01) | LOC: LAB 08:00 | PROVIDERS: ATTEND Obstetrics & Gynecology | DX: O09.90 Supervision of high risk pregnancy, unspecified, unspecified trimester (principal); Z36.85 Encounter for antenatal screening for Streptococcus B | CPT/HCPCS: 87797 ==

== ENCOUNTER 2021-07-19 09:20 | Outpatient (CLI) | payer OTHER ==
--- NOTE | 2021-07-19 09:57 | PROCEDURE REPORT ---
- HPI Diagnosis/Indication for NST: Gestational Diabetes - NST Procedure NST Procedure Start Time 09:23 Stop Time 09:47 heart tracin bpm baseline, moderate variability, accelerations present, no decelerations. [place]: Irregular, patient does not feel. - Results and Plan Findings/Impression: Patient is a 35-year-old G1, P0 at 36 weeks 1 day gestation here for scheduled NST. NST Performed 07/19/2021 NST Read 07/19/2021 Diagnosis 36 weeks gestation Gestational diabetes Plan Continue with twice weekly NST. Reactive NST
[2021-07-19 09:59] VITALS: BP 131/80
== END 2021-07-19 09:54 | disposition home or self-care (01) ==
LOC: WFO 09:20 → FBP 09:23 → WFO 09:54
PROVIDERS: ATTEND Obstetrics & Gynecology
DX: O24.419 Gestational diabetes mellitus in pregnancy, unspecified control (principal); Z3A.36 36 weeks gestation of pregnancy
CPT/HCPCS: 59025

== ENCOUNTER 2021-07-22 11:15 | Outpatient (CLI) | payer OTHER ==
--- NOTE | 2021-07-22 12:28 | Ultrasound Report ---
PROCEDURE: OB Limited INDICATIONS: GESTATIONAL DIABETES OUTSIDE/PRIOR DATING DATA: Last menstrual period (LMP): 11/08/2020. LMP-based estimated date of delivery (BK): 08/15/2021. First dating scan (date and location): 12/29/2020, [facility] Estimated date of delivery (BK) from first dating scan: 08/13/2021. The below data below was generated using the ultrasound BK of 08/13/2020 TECHNIQUE: Real-time scanning was performed of the fetus, with image documentation. Endovaginal scanning: Not performed. COMPARISON: Multiple ultrasound the most recent from 07/15/2021 FINDINGS: A single living intrauterine gestation is present. Presentation: Cephalic Placenta: Placental position is anterior, without previa. Amniotic fluid index: 8.8 cm, this most recently measured 12.7 cm heart rate: 158 beats per minutes. Maternal cervical canal: Not well seen Bilateral prominent renal pelvis are again identified measuring 9 mm on the left and 6 mm on the righ t, unchanged from most recent exam. IMPRESSION: MARS measures 8.8 cm on today's exam. Stable prominence of the renal pelvises. Reviewed by: Marcus Pagan DO on 07/22/2021 11:27 AM MEÑO Approved by: Marcus Pagan DO on 07/22/2021 11:27 AM MEÑO Station ID: [id number]
== END 2021-07-22 11:16 | disposition home or self-care (01) ==
LOC: DI 11:15
PROVIDERS: ATTEND Obstetrics & Gynecology
DX: O24.419 Gestational diabetes mellitus in pregnancy, unspecified control (principal); O09.90 Supervision of high risk pregnancy, unspecified, unspecified trimester; Z67.91 Unspecified blood type, Rh negative; K51.90 Ulcerative colitis, unspecified, without complications

== ENCOUNTER 2021-07-23 09:24 | Outpatient (CLI) | payer OTHER ==
[2021-07-23 09:45] VITALS: BP 107/63
--- NOTE | 2021-07-23 12:59 | PROCEDURE REPORT ---
- HPI Current EDU 08/15/21 Gestation 36 Weeks and 5 Days 1 Para 0 Vital Signs Temperature 97.9 F 07/23/21 09:38 Heart Rate 69 07/23/21 09:38 Respiratory Rate 16 07/23/21 09:38 Blood Pressure 107/63 07/23/21 09:38 Temperature 97.9 F 07/23/21 09:38 Heart Rate 69 07/23/21 09:38 Respiratory Rate 16 07/23/21 09:38 Blood Pressure 107/63 07/23/21 09:38 O2 Saturation 35-year-old G1, P0 at 36 weeks 5 days gestation here for scheduled NST. - NST Procedure NST Procedure Start Date 07/23/21 Start Time 09:32 Stop Time 09:57 Vibroacoustic Stimulation Used No Patient States Movement Yes NST Performed 07/23/2021 NST Read 07/23/2021 150 beats traversing, moderately, accelerations present, no decelerations. Reactive NST Occasional contractions, patient declines female. Has affecting some time. Diagnosis 36 weeks gestation Gestational diabetes Plan Continue with twice weekly NST. Reactive NST
== END 2021-07-23 10:00 | disposition home or self-care (01) ==
LOC: WFO 09:24 → FBP 09:28 → WFO 10:00
PROVIDERS: ATTEND Obstetrics & Gynecology
DX: O24.419 Gestational diabetes mellitus in pregnancy, unspecified control (principal); O09.513 Supervision of elderly primigravida, third trimester; Z3A.36 36 weeks gestation of pregnancy
CPT/HCPCS: 59025

== ENCOUNTER 2021-07-26 09:18 | Outpatient (CLI) | payer OTHER ==
[2021-07-26 09:28] VITALS: BP 123/81
--- NOTE | 2021-08-02 22:39 | PROCEDURE REPORT ---
- HPI Diagnosis/Indication for NST: Gestational Diabetes Current EDU 08/15/21 Gestation 37 Weeks and 1 Days 1 Para 0 Vital Signs Temperature 98.6 F 07/26/21 09:26 Heart Rate 102 H 07/26/21 09:26 Respiratory Rate 18 07/26/21 09:26 Blood Pressure 123/81 H 07/26/21 09:26 O2 Saturation 99 07/26/21 09:26 Temperature 98.6 F 07/26/21 09:26 Heart Rate 102 H 07/26/21 09:26 Respiratory Rate 18 07/26/21 09:26 Blood Pressure 123/81 H 07/26/21 09:26 O2 Saturation 99 07/26/21 09:26 - NST Procedure NST Procedure Start Date 07/26/21 Start Time 09:25 Stop Time 09:45 Vibroacoustic Stimulation Used No Patient States Movement Yes EFM 140 mod dominguez 15x15 accels no decels TOCO: quiet - Results and Plan Findings/Impression: 35 yo at 37+1 wga with affected by ulcerative colitis, A1DM, and renal pelviectasis. Cat I tracing Cont with twice weekly NST and weekly MARS DOS: 07/26/21 NST read 07/26/21 DX: IUP at 37+1 wga A1 GDM AMA Ulcerative colitis renal pelviectasis
== END 2021-07-26 09:50 | disposition home or self-care (01) ==
LOC: WFO 09:18 → FBP 09:21 → WFO 09:50
PROVIDERS: ATTEND Obstetrics & Gynecology
DX: O24.410 Gestational diabetes mellitus in pregnancy, diet controlled (principal); O99.613 Diseases of the digestive system complicating pregnancy, third trimester; K51.90 Ulcerative colitis, unspecified, without complications; O36.8930 Maternal care for other specified fetal problems, third trimester, not applicable or unspecified; Z3A.37 37 weeks gestation of pregnancy
CPT/HCPCS: 59025

== ENCOUNTER 2021-07-29 11:16 | Outpatient (CLI) | payer OTHER ==
--- NOTE | 2021-07-29 15:40 | Ultrasound Report ---
PROCEDURE: OB Limited INDICATIONS: GESTATIONAL DIABETES OUTSIDE/PRIOR DATING DATA: Last menstrual period (LMP): 11/08/2020. LMP-based estimated date of delivery (BK): 08/15/2021. First dating scan (date and location): 12/29/2020. Estimated date of delivery (BK) from first dating scan: 08/13/2021. The below data below was generated using the ultrasound BK of 08/13/2021 TECHNIQUE: Real-time scanning was performed of the fetus, with image documentation. COMPARISON: Several priors, including 07/22/2021, 07/15/2021, 07/10/2021, 07/01/2021, 12/29/2020. FINDINGS: A single live intrauterine gestation is present. Presentation: Vertex Placenta: Placental position is anterior, without previa. Amniotic fluid index: 8.4 cm, within normal limits for gestational age. (Largest pocket, 3.8 cm) heart rate: 145 beats per minutes. Maternal cervical canal: The cervix is not well seen. Estimated gestational age from initial scan: 37 weeks 6 days The left renal pelvis measures 7 mm in the right renal pelvis measures 4 mm. IMPRESSION: Unremarkable limited OB ultrasound, demonstrating a single live intrauterine . The MARS is 8.4, with the largest pocket measuring 3.8 cm. The left renal pelvis measures 7 mm. Reviewed by: Arnaud Rob MD on 07/29/2021 2:39 PM [place] Approved by: Arnuad Rob MD on 07/29/2021 2:39 PM [facility] Station ID: [id number]
== END 2021-07-29 11:17 | disposition home or self-care (01) ==
LOC: DI 11:16
PROVIDERS: ATTEND Obstetrics & Gynecology
DX: O24.419 Gestational diabetes mellitus in pregnancy, unspecified control (principal); Z67.91 Unspecified blood type, Rh negative; O99.891 Other specified diseases and conditions complicating pregnancy; K51.90 Ulcerative colitis, unspecified, without complications; O09.93 Supervision of high risk pregnancy, unspecified, third trimester; Z3A.37 37 weeks gestation of pregnancy

== ENCOUNTER 2021-07-30 09:19 | Outpatient (CLI) | payer OTHER ==
[2021-07-30 09:38] VITALS: BP 118/77
--- NOTE | 2021-07-30 12:15 | PROCEDURE REPORT ---
- HPI Diagnosis/Indication for NST: Gestational Diabetes Current EDU 08/15/21 Gestation 37 Weeks and 5 Days 1 Para 0 Vital Signs Temperature 97.9 F 07/30/21 09:35 Heart Rate 68 07/30/21 09:35 Respiratory Rate 16 07/30/21 09:35 Blood Pressure 118/77 07/30/21 09:35 Temperature 97.9 F 07/30/21 09:36 Heart Rate 68 07/30/21 09:36 Respiratory Rate 16 07/30/21 09:36 Blood Pressure 118/77 07/30/21 09:36 O2 Saturation - NST Procedure NST Procedure Start Date 07/30/21 Start Time 09:27 Stop Time 09:55 Vibroacoustic Stimulation Used No Patient States Movement Yes 35yo at 37 5/7 weeks here for NST due to Gestational Diabetes. Patient reports good movement. Patient denies contractions, SROM or vaginal bleeding. NST Baseline 140's with moderate variability and 15X15 Accelerations. Patient has rare contractions. No decelerations. Reactive NST and Category I monitor strip. A-IUP 37 5/7 with Gestational Diabetes and Advanced Maternal Age. P- Keep all scheduled clinic and monitoring appointments.
== END 2021-07-30 10:00 | disposition home or self-care (01) ==
LOC: WFO 09:19 → FBP 09:22 → WFO 10:00
PROVIDERS: ATTEND Obstetrics & Gynecology
DX: O24.419 Gestational diabetes mellitus in pregnancy, unspecified control (principal); O09.513 Supervision of elderly primigravida, third trimester; Z3A.37 37 weeks gestation of pregnancy
CPT/HCPCS: 59025

== ENCOUNTER 2021-08-02 09:18 | Outpatient (CLI) | payer OTHER ==
[2021-08-02 09:29] VITALS: BP 117/80
--- NOTE | 2021-08-02 12:20 | PROCEDURE REPORT ---
- HPI Diagnosis/Indication for NST: Gestational Diabetes Vital Signs Temperature 97.9 F 08/02/21 09:28 Heart Rate 86 08/02/21 09:28 Respiratory Rate 18 08/02/21 09:28 Blood Pressure 117/80 08/02/21 09:28 O2 Saturation 99 08/02/21 09:28 Temperature 97.9 F 08/02/21 10:36 Heart Rate 84 08/02/21 09:28 Respiratory Rate 18 08/02/21 09:28 Blood Pressure 117/80 08/02/21 09:28 O2 Saturation 99 08/02/21 09:28 - NST Procedure NST Procedure Start Date 08/02/21 Start Time 09:26 Stop Time 09:58 Vibroacoustic Stimulation Used No Patient States Movement Yes - Results and Plan Findings/Impression: heart rate baseline 140 bpm, moderate variability accelerations 15 x 15 decelerations none no contractions on toco NST reactive and reassuring
== END 2021-08-02 10:04 | disposition home or self-care (01) ==
LOC: WFO 09:18 → FBP 09:23 → WFO 10:04
PROVIDERS: ATTEND Obstetrics & Gynecology
DX: O24.419 Gestational diabetes mellitus in pregnancy, unspecified control (principal); Z3A.00 Weeks of gestation of pregnancy not specified
CPT/HCPCS: 59025

== ENCOUNTER 2021-08-05 11:15 | Outpatient (CLI) | payer OTHER ==
--- NOTE | 2021-08-05 14:10 | Ultrasound Report ---
PROCEDURE: OB Limited INDICATIONS: GESTATIONAL DIABETES OUTSIDE/PRIOR DATING DATA: Last menstrual period (LMP): 11/08/2020. LMP-based estimated date of delivery (BK): 08/15/2021. First dating scan (date and location): 12/29/2020. Estimated date of delivery (BK) from first dating scan: 08/13/2021. TECHNIQUE: Real-time scanning was performed of the fetus, with image documentation. Endovaginal scanning: None COMPARISON: None. FINDINGS: A single living intrauterine gestation is present. Presentation: Vertex Placenta: Placental position is anterior, without previa. Amniotic fluid index: 14.1 cm, normal for gestational age. Largest vertical pocket 5.2 cm heart rate: 145 beats per minutes. Maternal cervical canal: Nonvisualized cm Estimated gestational age from initial scan: 33 week 6 day gestation. Stable left renal pyelocaliectasis, 7 mm IMPRESSION: Single live intrauterine consistent with 33 week 6 day gestation. Stable left renal pyelocaliectasis, 7 mm MARS 14.1 cm Reviewed by: Conrado Mclean MD on 08/05/2021 1:08 PM [place] Approved by: Conrado Mclean MD on 08/05/2021 1:08 PM [place] Station ID: [id number]
== END 2021-08-05 11:16 | disposition home or self-care (01) ==
LOC: DI 11:15
PROVIDERS: ATTEND Obstetrics & Gynecology
DX: O09.93 Supervision of high risk pregnancy, unspecified, third trimester (principal); O24.419 Gestational diabetes mellitus in pregnancy, unspecified control; O99.613 Diseases of the digestive system complicating pregnancy, third trimester; Z3A.33 33 weeks gestation of pregnancy; K51.90 Ulcerative colitis, unspecified, without complications

== ENCOUNTER 2021-08-06 09:17 | Outpatient (CLI) | payer OTHER ==
[2021-08-06 09:58] VITALS: BP 124/78
--- NOTE | 2021-08-06 12:31 | PROCEDURE REPORT ---
- HPI Diagnosis/Indication for NST: Other (Advanced Maternal Age) Current EDU 08/15/21 Gestation 38 Weeks and 5 Days 1 Para 0 Vital Signs Temperature 98.3 F 08/06/21 09:30 Heart Rate 75 08/06/21 09:30 Respiratory Rate 18 08/06/21 09:30 Blood Pressure 136/78 H 08/06/21 09:30 O2 Saturation 99 08/06/21 09:30 Temperature 98.3 F 08/06/21 09:33 Heart Rate 75 08/06/21 09:33 Respiratory Rate 18 08/06/21 09:33 Blood Pressure 124/78 08/06/21 09:45 O2 Saturation 99 08/06/21 09:30 - NST Procedure NST Procedure Start Date 08/06/21 Start Time 09:25 Stop Time 09:45 Vibroacoustic Stimulation Used No Patient States Movement Yes 35yo at 38 5/7 here for NST due to GDM and Advanced Maternal age. Patient is without complaints. Patient reports good movement. Patient is not reporting any contractions. NST: Baseline heart rate is 130 with moderate variability and accelerations 15X15. No decelerations. Reactive NST and Category I monitor strip. Keep all scheduled monitoring and clinic appointments.
== END 2021-08-06 09:50 | disposition home or self-care (01) ==
LOC: WFO 09:17 → FBP 09:20 → WFO 09:50
PROVIDERS: ATTEND Obstetrics & Gynecology
DX: O24.419 Gestational diabetes mellitus in pregnancy, unspecified control (principal); Z3A.38 38 weeks gestation of pregnancy; O09.513 Supervision of elderly primigravida, third trimester
CPT/HCPCS: 59025

== ENCOUNTER 2021-08-08 17:49 | Inpatient (IN) | payer OTHER ==
[2021-08-08] MEDS ORDERED: miSOPROStoL 200 MCG TABLET BC PRN (18:17)
[2021-08-08] MEDS ORDERED: hydrALAZINE INJ 20 MG/ML VIAL IVP PRN (18:17)
[2021-08-08] MEDS ORDERED: LABETALOL 20 MG/4 ML SYRINGE IVP PRN (18:17)
[2021-08-08] MEDS ORDERED: OXYTOCIN 10 UNIT/ML VIAL IM PRN (18:17)
[2021-08-08] MEDS ORDERED: fentaNYL 100 MCG/2 ML VIAL IVP PRN (18:17)
[2021-08-08] MEDS ORDERED: LIDOCAINE-MPF 1% 30 ML VIAL ID PRN (18:17)
[2021-08-08] MEDS ORDERED: SODIUM CHLORIDE FLUSH 0.9% 10 ML SYRINGE IVP PRN (18:17)
[2021-08-08] MEDS ORDERED: CARBOPROST TROMETHAMINE 250 MCG/ML AMP IM PRN (18:17)
[2021-08-08] MEDS ORDERED: TRANEXAMIC ACID IN NACL 1,000 MG/100 ML BAG IV PRN (18:17)
[2021-08-08] MEDS ORDERED: METHYLERGONOVINE 0.2 MG/ML VIAL IM PRN (18:17)
[2021-08-08] MEDS ORDERED: ONDANSETRON 4 MG/2 ML VIAL IVP PRN (18:17)
[2021-08-08] MEDS ORDERED: OXYTOCIN/SODIUM CHLORIDE 500 ML IV PRN (18:17)
--- NOTE | 2021-08-08 18:29 | HISTORY & PHYSICAL EXAMINATION ---
Admit History - Visit Reason Visit Reason: Other (Admission for Medical Induction of labor, IUP 39 0/7 with Gestational Diabetes) - : 1 Parity: 0 Premature: 0 Ectopic: 0 : 0 Care: positive: Other ([facility]) Risk/History: positive: Gestational diabetes Complications This : positive: Gestational diabetes Smoking Status: Never smoker - Mother's Labs Mother's RH: positive: Positive GBS: positive: Group B Step Negative Rubella Status: positive: Immune Meds/Allgy - Allergies Allergies/Adverse Reactions: Allergies Allergy/AdvReac Type Severity Reaction Status Date / Time No Known Drug Allergies Allergy Verified 04/14/17 11:29 Review of Systems - Constitutional Constitutional: denies: Fatigue, Fever, Chills - Cardiovascular Cariovascular: denies: Irregular heart rate, Palpitations, Chest pain - Respiratory Respiratory: denies: Cough, Sputum production, Wheezing - Psychiatric Psychiatric: denies: Anxiety, Suicidal Physical - Abdominal Exam Contraction Frequency (min/apart): Not currently [place]. Some irritability. Uterine Resting Tone: positive: Soft - Monitoring Heart Rate Baseline: 130, [place] variability Strip Review: positive: Category I - Presentation Presentation: positive: Vertex (Bedside ultrasound performed. Vertex presentation.) - Vaginal Exam Membranes: positive: Membranes intact Dilation (in cm): 1 Effacement (%): 0 Station: positive: -3 Cervical Position: positive: Posterior (to patient's left side.) - Speculum Exam Speculum Exam Performed: positive: No - Other Notes Labor Progress Note/Additional Text: 35yo at 39 0/7 with GDM presents for induction of labor. Patient and are present in room. Discussed plan of care. Patient consented to Induction in office and consent is on the chart. A-IUP 39 0/7 with GDM and Advanced Maternal Age. P- Begin with Cytoec 50mcg orally for induction process. Discussed anticipated progression and answered questions. Patient plans to have epidural when appropriate.
[2021-08-08] MEDS: miSOPROStoL 100 MCG TABLET PO SCH ×2 (18:51→22:56)
[2021-08-08 18:56] LABS: BASOPHILS % (AUTO) 0.4 %; EOSINOPHILS # (AUTO) 0.1 10^3/uL (0.0-0.7); EOSINOPHILS % (AUTO) 0.5 %; HCT - HEMATOCRIT 36.8 % (37.0-47.0); HGB - HEMOGLOBIN 12.8 g/dL (12.0-16.0); LYMPHOCYTES # (AUTO) 2.2 10^3/uL (1.5-3.5); LYMPHOCYTES % (AUTO) 20.9 %; MEAN CORPUSCULAR HEMOGLOBIN 30.6 pg (27.0-31.0); MEAN CORPUSCULAR HGB CONC 34.8 g/dL (32.0-36.0); MEAN PLATELET VOLUME 10.4 fL (7.9-10.8); MONOCYTES # (AUTO) 0.8 10^3/uL (0.0-1.0); MONOCYTES % (AUTO) 7.4 %; NEUTROPHILS # (AUTO) 7.3 10^3/uL (1.5-6.6); NEUTROPHILS % (AUTO) 70.4 %; PLT - PLATELET COUNT 202 10^3/uL (130-450); RED BLOOD COUNT 4.18 10^6/uL (4.20-5.40); RED CELL DISTRIBUTION WIDTH 13.8 % (12.0-15.0); WHITE BLOOD COUNT 10.4 x10^3/uL (4.8-10.8)
[2021-08-08] MEDS ORDERED: LACTATED RINGERS 1,000 ML IV SCH (19:00)
[2021-08-08] MEDS ORDERED: metFORMIN 500 MG TABLET PO SCH (19:00)
[2021-08-09] MEDS ORDERED: SODIUM CHLORIDE FLUSH 0.9% 10 ML SYRINGE IVP SCH (01:00)
[2021-08-09] MEDS ORDERED: LACTATED RINGERS 500 ML IV ONE (03:50)
[2021-08-09] MEDS ORDERED: ROPIVACAINE 0.2% 200 MG/100 ML BAG EP ONE (04:22)
[2021-08-09] MEDS ORDERED: ONDANSETRON 4 MG/2 ML VIAL IVP PRN (04:51)
[2021-08-09] MEDS ORDERED: diphenhydrAMINE INJ 50 MG/ML VIAL IVP PRN (04:51)
[2021-08-09] MEDS ORDERED: ROPIVACAINE 0.2% 200 MG/100 ML BAG EP PRN (04:51)
[2021-08-09] MEDS ORDERED: NALBUPHINE 10 MG/ML AMP IVP PRN (04:51)
--- NOTE | 2021-08-09 04:53 | ANESTHESIA PROCEDURE NOTE ---
Anesthesia Epidural Template - Plan Plan: positive: Continue current management
--- NOTE | 2021-08-09 04:54 | ANESTHESIA ---
Pre-Anesthesia VS, & Labs - Diagnosis active labor - Procedure labor epidural Vital Signs: Temp Pulse Resp BP Pulse Ox 37.2 C 08/08/21 18:21 Height: 5 ft 7 in Weight (kg): 94.347 kg Body Mass Index: 32.5 BMI Classification: Obese - NPO >8 hours - Is Patient ?: Yes - Lab Results Current Lab Results: Laboratory Tests 08/09/21 04:01: POC Whole Bld Glucose 88 08/08/21 23:39: POC Whole Bld Glucose 80 08/08/21 19:32: POC Whole Bld Glucose 72 08/08/21 18:50: Blood Type A NEGATIVE, Antibody Screen NEGATIVE 08/08/21 18:50: Glucose 83 08/08/21 18:50: WBC 10.4, RBC 4.18 L, Hgb 12.8, Hct 36.8 L, MCV 88.0, MCH 30.6, MCHC 34.8, RDW 13.8, Plt Count 202, MPV 10.4, Neut # (Auto) 7.3 H, Lymph # (Auto) 2.2, [place] # (Auto) 0.8, Eos # (Auto) 0.1, Baso # (Auto) 0.0, Absolute N ucleated RBC 0.00, Nucleated RBC % 0.0 Fish Bones: 08/08/21 18:50 08/08/21 18:50 Home Medications and Allergies Active Medications Carboprost Tromethamine (Carboprost Tromethamine 250 Mcg/Ml Amp) 250 mcg IM Q15M PRN PRN Reason: Step 4: Hemorrhage protocol Stop: 08/13/21 18:18 Diphenhydramine HCl (Diphenhydramine Inj 50 Mg/Ml Vial) 12.5 - 25 mg IVP Q6HR PRN PRN Reason: ITCHING Fentanyl (Fentanyl 100 Mcg/2 Ml Vial) 50 mcg IVP Q1H PRN PRN Reason: PAIN Hydralazine HCl (Hydralazine Inj 20 Mg/Ml Vial) 10 mg IVP .ONCE PRN; Protocol PRN Reason: Step 9 of Labetalol protocol Stop: 08/13/21 18:26 Oxytocin/Sodium Chloride (Pitocin/Sodium Chloride) 500 mls @ 999 mls/hr IV PRN PRN; Protocol PRN Reason: POST- HEMORR PREVENTION Stop: 08/13/21 18:18 Tranexamic Acid (Tranexamic 1,000 Mg/100ml-Nacl) 1,000 mg in 100 mls @ 600 mls/hr IV .ONCE PRN PRN Reason: EBL >1200mL and within 3hr Stop: 08/13/21 18:18 Lactated Ringer's (Lr) 1,000 mls @ 100 mls/hr IV .Q10H [facility] Ropivacaine (Naropin 0.2%) 200 mg in 100 mls @ 0 mls/hr EP PRN PRN; Protocol PRN Reason: PAIN Labetalol HCl (Labetalol 20 Mg/4 Ml Syringe) 20 - 80 mg IVP Q10M PRN; Protocol PRN Reason: SBP >160 or DBP >110 Lidocaine HCl (Lidocaine-Mpf 1% 30 Ml Vial) 30 ml ID .ONCE PRN PRN Reason: PERINEAL REPAIR Stop: 08/13/21 18:18 Metformin HCl (Metformin 500 Mg Tablet) 500 [facility] Last Admin: 08/08/21 19:58 Dose: 500 mg Documented by: Methylergonovine Maleate (Methylergonovine 0.2 Mg/Ml Vial) 0.2 mg IM .ONCE PRN PRN Reason: Step 2: Hemorrhage protocol Stop: 08/13/21 18:18 Misoprostol (Misoprostol 200 Mcg Tablet) 800 mcg BC .ONCE PRN PRN Reason: Step 3: Hemorrhage protocol Stop: 08/13/21 18:18 Misoprostol (Misoprostol 100 Mcg Tablet) 50 mcg PO Q4HR [facility] Last Admin: 08/08/21 22:56 Dose: 50 mcg Documented by: Nalbuphine HCl (Nalbuphine 10 Mg/Ml Amp) 2.5 - 5 mg IVP Q4H PRN PRN Reason: Severe Itching Ondansetron HCl (Ondansetron 4 Mg/2 Ml Vial) 4 mg IVP Q4HR PRN PRN Reason: Nausea / Vomiting Ondansetron HCl (Ondansetron 4 Mg/2 Ml Vial) 4 mg IVP Q6HR PRN PRN Reason: Nausea / Vomiting Oxytocin (Oxytocin 10 Unit/Ml Vial) 10 unit IM .ONCE PRN PRN Reason: Step one: If no IV access Stop: 08/13/21 18:18 Sodium Chloride (Sodium Chloride Flush 0.9% 10 Ml Syringe) 10 ml IVP 0100,0900,1700 CALI Sodium Chloride (Sodium Chloride Flush 0.9% 10 Ml Syringe) 10 ml IVP PRN PRN PRN Reason: NEEDED PER PROVIDER ORDERS Allergies/Adverse Reactions: Allergies Allergy/AdvReac Type Severity Reaction Status Date / Time No Known Drug Allergies Allergy Verified 04/14/17 11:29 Anes History & Medical History - Anesthetic History Anesthesia Complications: reports: No previous complications Family history of Anesthesia Complications: Denies Family history of Malignant Hyperthermia: Denies - Medical History Cardiovascular: reports: None Pulmonary: reports: None Smoking Status: Never smoker - Obstetrical History : 1 Parity: 0 Events: reports: Gestational diabetes Complications: reports: Gestational diabetes Exam General: Alert, Oriented x3, Cooperative Dental: WNL Mouth Openin Fingerbreadth Mallampati classification: II Thyromental Distance: 4-6 cm Respiratory: Lungs clear Cardiovascular: Regular rate Plan Anesthesia Type: Epidural Consent for Procedure(s) Verified and Reviewed: Yes Code Status: Attempt Resuscitation ASA classification: 2-Mild systemic disease Is this case an emergency?: No
[2021-08-09] MEDS ORDERED: OXYTOCIN/SODIUM CHLORIDE 500 ML IV SCH (10:46)
--- NOTE | 2021-08-09 13:27 | DELIVERY NOTE ---
Delivery Note - Labor Labor: positive: Augmented by oxytocin, Other (Cervical ripening with Cytotec 50mcg times two) - Delivery Method Infant Delivery Method: positive: Vacuum assist - Cervical Ripening Method Cervical Ripening Method: positive: Misoprostil - Presentation Presentation: positive: Vertex, MARTA - left occiput anterior - Nuchal Cord Nuchal Cord: positive: Present - Anesthetic Anesthetic Type: - Amniotic Fluid Description Amniotic Fluid Description: positive: Clear - Vacuum Use Indication for Vacuum Use: positive: Suspicion of immediate or potential compromise Type of Vacuum Cup: positive: Cup: Mushroom Type Vacuum Extraction: positive: Successful Number of pop-offs: 3 ( hair and blood prevented good utilizaton of vacuum. Utilized with 2 contractions, 3 quick pop-offs but maternal forces were making progress. When top of head out of introitus, one more application assisted in delivery of head.) - Episiotomy Type Episiotomy Type: positive: None - Laceration Laceration: positive: 2nd degree, Periurethral, Vaginal - Delivery Outcome Delivery Outcome: positive: Livebirth - [place]: positive: Placed in direct skin contact with mother, Bulb syringe sex: positive: Male - Cord Cord: positive: 3 vessels - Placenta Placenta: positive: Intact, Spontaneous - Estimated Blood Loss Estimated Blood Loss (in cc): 350 - Delivery Comments (Free Text/Narrative) Delivery Comments (Free Text/Narrative): Patient was admitted for Medical induction of labor due to GDM and AMA. Patient had utilized Metformin 500mg at hs to control her blood glucose levels. Patient received two doses of Cytotec 50mcg orally. Patient progressed in labor. Patient did not require pitocin augmentation until she started pushing. Patient had glucose checks throughout labor and they were all within normal limits. While patient was pushing, Pitocin augmentation was started. Patient pushed head to 2+ to 3+ station. heart rate started having decelerations to the 90's during pushing. Category II strip due to decelerations. Patient was verbally consented for Vacuum assisted vaginal Delivery. Dr. Alexandra and Respiratory Therapy were called to delivery room to be present due to Vacuum assisted vaginal delivery. Station of head was 3+ station, position of OP or OA could not be determined due to caput. Vacuum applied with two contractions and due to long hair, 3 pop-offs occurred. Patient continued to push, unassisted. When a significant part of head was delivered through the introitus, vacuum applied with light pressure and head guided over the perineum. Head delivered in MARTA position. No nuchal cord was palpated. Maternal forces delivered right shoulder under pubic bone and cord was tightly wrapped around shoulder and body. Cord clamped times two and cut. Living male with Apgars of 8/9. Dr. Cervantes did not need cord blood gases sent. Pitocin started in IV. Cord blood collected and sent to lab. Placenta delivered spontaneously, intact, MARIA ANTONIA. Cervix inspected and found to be intact. Second degree laceration to perineum. 2-0 Vicryl in 2 layer running fashion to repair perineum. 2-0 Vicryl in interrupted fashion to repair bilateral perinurethral lacerations and Vaginal sidewall lacerations at introitus. Good hemostasis and approxomation were obtained. Sponge, instrument and needle counts were correct. Patient and are resting in stable condition. EBL is 350cc.
[2021-08-09] MEDS ORDERED: WITCH HAZEL/GLYCERIN 1 PAD TOP PRN (15:33)
[2021-08-09] MEDS ORDERED: HYDROCORTISONE 1% CREAM 28 GM TUBE PR PRN (15:33)
[2021-08-09 15:55] LABS: BASOPHILS % (AUTO) 0.2 %; EOSINOPHILS % (AUTO) 0.1 %; HCT - HEMATOCRIT 35.6 % (37.0-47.0); HGB - HEMOGLOBIN 12.4 g/dL (12.0-16.0); LYMPHOCYTES # (AUTO) 1.2 10^3/uL (1.5-3.5); LYMPHOCYTES % (AUTO) 7.9 %; MEAN CORPUSCULAR HEMOGLOBIN 30.9 pg (27.0-31.0); MEAN CORPUSCULAR HGB CONC 34.8 g/dL (32.0-36.0); MEAN CORPUSCULAR VOLUME 88.8 fL (81.0-99.0); MEAN PLATELET VOLUME 10.4 fL (7.9-10.8); MONOCYTES # (AUTO) 0.9 10^3/uL (0.0-1.0); MONOCYTES % (AUTO) 5.8 %; NEUTROPHILS # (AUTO) 12.5 10^3/uL (1.5-6.6); NEUTROPHILS % (AUTO) 85.5 %; PLT - PLATELET COUNT 198 10^3/uL (130-450); RED BLOOD COUNT 4.01 10^6/uL (4.20-5.40); RED CELL DISTRIBUTION WIDTH 13.7 % (12.0-15.0); WHITE BLOOD COUNT 14.6 x10^3/uL (4.8-10.8)
[2021-08-09] MEDS ORDERED: SIMETHICONE CHEW 80 MG TABLET PO SCH (16:00)
[2021-08-09] MEDS ORDERED: LACTATED RINGERS 1,000 ML IV SCH (16:00)
[2021-08-09] MEDS: ACETAMINOPHEN 500 MG TABLET PO SCH (16:11)
[2021-08-09] MEDS: IBUPROFEN 600 MG TABLET PO SCH ×2 (16:12→22:09)
[2021-08-09] MEDS: DOCUSATE SODIUM 100 MG CAPSULE PO SCH (22:09)
[2021-08-10] MEDS: ACETAMINOPHEN 500 MG TABLET PO SCH ×3 (03:24→20:03)
[2021-08-10] MEDS: IBUPROFEN 600 MG TABLET PO SCH ×2 (07:51→21:53)
[2021-08-10] MEDS: MESALAMINE 1.2 GM PO SCH (12:07)
--- NOTE | 2021-08-10 18:38 | PROVIDER PROGRESS NOTE ---
Subjective - Prog Note Date Prog Note Date: 08/10/21 Prog Note Time: 16:00 - Subjective Subjective: Doing well. Up and ambulating. Tolerating po. Pain well managed. Voiding. BF is going well. No concerns. Objective - Vital Signs/Intake & Output Reviewed Vital Signs: Yes Vital Signs: Vital Signs x48h Temp Pulse Resp BP Pulse Ox 08/10/21 16:40 97.7 F 70 18 107/66 99 08/10/21 12:14 97.3 F L 72 20 113/67 100 Intake & Output: Intake & Output 08/07/21 08/08/21 08/09/21 08/10/21 23:59 23:59 23:59 23:59 Intake Total 2400.217 Output Total 1800 Balance 600.217 - Objective General Appearance: positive: No acute distress Neck: positive: Nml inspection Respiratory: positive: No respiratory distress, Breath sounds nml Cardiovascular: positive: Regular rate & rhythm Abdomen: positive: Non-tender, Other (S&NT/ND, FF below umbi) Skin: positive: Color nml Extremities: positive: No pedal edema Neurologic/Psychiatric: positive: Oriented x3 - Lab Results Fish Bones: 08/09/21 15:44 08/08/21 18:50
[2021-08-10] MEDS: DOCUSATE SODIUM 100 MG CAPSULE PO SCH (21:54)
[2021-08-11] MEDS: IBUPROFEN 600 MG TABLET PO SCH ×2 (04:41→11:00)
[2021-08-11] MEDS: ACETAMINOPHEN 500 MG TABLET PO SCH (04:41)
[2021-08-11] MEDS: DOCUSATE SODIUM 100 MG CAPSULE PO SCH (09:05)
[2021-08-11] MEDS: MESALAMINE 1.2 GM PO SCH (09:05)
--- NOTE | 2021-08-11 12:18 | Discharge Plan ---
Discharge Plan Problem Reviewed?: Yes Disposition: Home, Self Care Condition: Good Prescriptions: Acetaminophen [Acetaminophen Extra Strength] 1,000 mg PO Q8H PRN #60 tablet PRN Reason: Pain Docusate Sodium 100Mg Capsule [Colace 100Mg Capsule] 100 - 200 mg PO BID PRN #60 cap PRN Reason: Constipation Ibuprofen [Motrin] 600 mg PO Q6H PRN #60 tab PRN Reason: Pain Diet: Regular Activity Restrictions: Additional Comments (Nothing in the vagina for 6 weeks: No intercourse, tampons, douching Call for: -Fever greater than 100.5 - Pain that does not improve with pain medication -Heavy bleeding in which you are soaking a pad an hour for 2 hours in a row No tub baths or hot tubs for 4 weeks) Shower Restrictions: Yes (see above) Driving Restrictions: No Additional Instructions or Follow Up instructions: Ibuprofen 600 mg by mouth every 6 hours as needed for pain Acetaminophen 500-1000 mg by mouth every 8 hours as needed for pain Docusate 100-200 mg by mouth twice a day as needed for constipation No Smoking: If you smoke, Please STOP! Call for help. Follow-up with: Mariely Hampton MD [Provider Admit Priv/Credential] -
--- NOTE | 2021-08-11 14:42 | DISCHARGE SUMMARY ---
"Discharge Summary Admit Date: 08/08/21 Discharge Date: 08/11/21 Discharging Provider: Memo Condition at Discharge: Good Discharge Disposition: 01 Home, Self Care - DIAGNOSES Admission Diagnoses: IUP at 39+0 wga A2DM Ulcerative colitis mild renal pelviectasis, 7 mm Discharge Diagnoses with Status of Each Condition: Same and delivery of term gestation - HPI History of Present Illness: 35yo at 39 0/7 with GDM presented for induction of labor for affected by gestational diabetes, ulcerative colitis, advanced maternal age, and mild renal pelviectasis. - CONSULTS | PROCEDURES Procedures: Vacuum assisted vaginal delivery - HOSPITAL COURSE Hospital Course: Patient was admitted for Medical induction of labor due to GDM and AMA. Patient had utilized Metformin 500mg at hs to control her blood glucose levels. Patient received two doses of Cytotec 50mcg orally. Patient progressed in labor. Patient did not require pitocin augmentation until she started pushing. Patient had glucose checks throughout labor and they were all within normal limits. While patient was pushing, Pitocin augmentation was started. Patient pushed head to 2+ to 3+ station. heart rate started having decelerations to the 90's during pushing. Category II strip due to decelerations. Patient was verbally consented for Vacuum assisted vaginal Delivery. Dr. Erickson and Respiratory Therapy were called to delivery room to be present due to Vacuum assisted vaginal delivery. Station of head was 3+ station, position of OP or OA could not be determined due to caput. Vacuum applied with two contractions and due to long hair, 3 pop-offs occurred. Patient continued to push, unassisted. When a significant part of head was delivered through the introitus, vacuum applied with light pressure and head guided over the perineum. Head delivered in MARTA position. No nuchal cord was palpated. Maternal forces delivered right shoulder under pubic bone and cord was tightly wrapped around shoulder and body. Cord clamped times two and cut. Living male with Apgars of 8/9. Dr. Cervantes did not need cord blood gases sent. Pitocin started in IV. Cord blood collected and sent to lab. Placenta delivered spontaneously, intact, MARIA ANTONIA. Cervix inspected and found to be intact. Second degree laceration to perineum. 2-0 Vicryl in 2 layer running fashion to repair perineum. 2-0 Vicryl in interrupted fashion to repair bilateral perinurethral lacerations and Vaginal sidewall lacerations at introitus. Good hemostasis and approxomation were obtained. Sponge, instrument and needle counts were correct. Patient and are resting in stable condition. EBL is 350cc. course was uncomplicated. By PPD#2, patient was meeting goals for discharge. had more than 10% weight loss and remained in-patient for observation. Mother discharged to boarding status. Mother and baby are both Rh negative. - ALLERGIES Allergies/Adverse Reactions: Allergies Allergy/AdvReac Type Severity Reaction Status Date / Time No Known Drug Allergies Allergy Verified 04/14/17 11:29 - MEDICATIONS Home Medications: Ambulatory Orders Medication Instructions Recorded Confirmed Aspirin EC [Ecotrin] 81 mg PO DAILY 08/09/21 08/09/21 Mesalamine [Lialda] 2.4 gm PO DAILY 08/09/21 08/09/21 Acetaminophen [Acetaminophen Extra 1,000 mg PO Q8H PRN #60 tablet 08/10/21 Strength] Docusate Sodium 100Mg Capsule 100 - 200 mg PO BID PRN #60 cap 08/10/21 [Colace 100Mg Capsule] Ibuprofen [Motrin] 600 mg PO Q6H PRN #60 tab 08/10/21 - PHYSICAL EXAM AT DISCHARGE General Appearance: positive: No acute distress Neck: positive: Nml inspection Respiratory: positive: No respiratory distress Cardiovascular: positive: Other (RR) Peripheral Pulses: positive: 2+ Abdomen: positive: Non-tender, Other (gravid, S&NT/ND. FF below umbi) Skin: positive: Color nml Extremities: positive: Non-tender, No pedal edema Neurologic/Psychiatric: positive: Oriented x3 - LABS Result Diagrams: 08/09/21 15:44 08/08/21 18:50 - FOLLOW UP Follow Up: [address] Hampton - TIME SPENT Time Spent in Discharge (Minutes): 30"
[2021-08-11 16:45] VITALS: BP 126/70
== END 2021-08-11 17:20 | disposition home or self-care (01) | DRG 806 ==
LOC: WFO 17:49 → FBP 17:53 → WFO 18:16 → FBP 18:17
PROVIDERS: ADMIT Obstetrics & Gynecology; ATTEND Obstetrics & Gynecology
PROC: 3E0DXGC Introduction of Other Therapeutic Substance into Mouth and Pharynx, External Approach (ICD-10-PCS; 2021-08-08)
PROC: 10D07Z6 Extraction of Products of Conception, Vacuum, Via Natural or Artificial Opening (ICD-10-PCS; principal; 2021-08-09)
PROC: 0KQM0ZZ Repair Perineum Muscle, Open Approach (ICD-10-PCS; 2021-08-09)
DX: O24.425 Gestational diabetes mellitus in childbirth, controlled by oral hypoglycemic drugs (principal); K51.90 Ulcerative colitis, unspecified, without complications; Z37.0 Single live birth; O70.1 Second degree perineal laceration during delivery; O99.62 Diseases of the digestive system complicating childbirth; O36.8930 Maternal care for other specified fetal problems, third trimester, not applicable or unspecified; O69.2XX0 Labor and delivery complicated by other cord entanglement, with compression, not applicable or unspecified; Z3A.39 39 weeks gestation of pregnancy
CPT/HCPCS: 36415; 82947; 85025; 86850; 86900; 86901; A9270; J7120

== ENCOUNTER 2021-11-16 07:51 | Outpatient (CLI) | payer OTHER ==
[2021-11-16 08:17] LABS: GTT GLUCOSE,FASTING 101 mg/dL (70-100)
== END 2021-11-16 07:52 | disposition home or self-care (01) ==
LOC: LAB 07:51
PROVIDERS: ATTEND Obstetrics & Gynecology
DX: O24.419 Gestational diabetes mellitus in pregnancy, unspecified control (principal)
CPT/HCPCS: 36415; 82951

== ENCOUNTER 2022-11-25 08:00 | Outpatient (CLI) | payer OTHER ==
[2022-11-25 17:26] LABS: BILIRUBIN,URINE NEGATIVE (NEGATIVE); CLARITY,URINE CLEAR (CLEAR); GLUCOSE, URINE (UA) NEGATIVE (NEGATIVE); KETONES,URINE (UA) NEGATIVE (NEGATIVE); LEUKOCYTE ESTERASE, URINE TRACE (NEGATIVE); NITRITE,URINE NEGATIVE (NEGATIVE); OCCULT BLOOD,URINE NEGATIVE (NEGATIVE); PH,URINE 5.5 PH (5.0-7.5); PROTEIN,URINE NEGATIVE (NEGATIVE); UROBILINOGEN,URINE 0.2 (NORMAL) E.U./dL (NORMAL)
[2022-11-25 18:10] LABS: RBC,URINE 0-5 /HPF (0-5)
[2022-11-25 18:11] LABS: BACTERIA,URINE Moderate /HPF (None Seen); SQUAMOUS EPITHELIAL CELL,UR MOD Squamous (<= Few)
== END 2022-11-25 23:59 | disposition home or self-care (01) ==
LOC: LAB.WC 08:00
PROVIDERS: ATTEND Obstetrics & Gynecology
DX: Z34.90 Encounter for supervision of normal pregnancy, unspecified, unspecified trimester (principal)
CPT/HCPCS: 81001; 87086

== ENCOUNTER 2022-11-28 11:40 | Outpatient (CLI) | payer OTHER ==
[2022-11-28 12:18] LABS: BASOPHILS % (AUTO) 0.4 %; EOSINOPHILS % (AUTO) 0.5 %; HCT - HEMATOCRIT 40.1 % (37.0-47.0); HGB - HEMOGLOBIN 13.2 g/dL (12.0-16.0); LYMPHOCYTES # (AUTO) 1.9 10^3/uL (1.5-3.5); LYMPHOCYTES % (AUTO) 23.2 %; MEAN CORPUSCULAR HEMOGLOBIN 27.8 pg (27.0-31.0); MEAN CORPUSCULAR HGB CONC 32.9 g/dL (32.0-36.0); MEAN CORPUSCULAR VOLUME 84.6 fL (81.0-99.0); MONOCYTES # (AUTO) 0.5 10^3/uL (0.0-1.0); MONOCYTES % (AUTO) 6.3 %; NEUTROPHILS # (AUTO) 5.8 10^3/uL (1.5-6.6); NEUTROPHILS % (AUTO) 69.4 %; PLT - PLATELET COUNT 252 10^3/uL (130-450); RED BLOOD COUNT 4.74 10^6/uL (4.20-5.40); RED CELL DISTRIBUTION WIDTH 12.7 % (12.0-15.0); WHITE BLOOD COUNT 8.3 x10^3/uL (4.8-10.8)
[2022-11-28 12:37] LABS: BILIRUBIN,URINE NEGATIVE (NEGATIVE); GLUCOSE, URINE (UA) NEGATIVE (NEGATIVE); KETONES,URINE (UA) NEGATIVE (NEGATIVE); LEUKOCYTE ESTERASE, URINE TRACE (NEGATIVE); NITRITE,URINE NEGATIVE (NEGATIVE); OCCULT BLOOD,URINE LARGE (NEGATIVE); PROTEIN,URINE NEGATIVE (NEGATIVE); UROBILINOGEN,URINE 0.2 (NORMAL) E.U./dL (NORMAL)
[2022-11-28 12:46] LABS: CLARITY,URINE CLEAR (CLEAR)
[2022-11-28 12:47] LABS: BACTERIA,URINE Rare /HPF (None Seen); RBC,URINE 0-5 /HPF (0-5); SQUAMOUS EPITHELIAL CELL,UR FEW Squamous (<= Few)
[2022-11-29 06:11] LABS: HBsAG SCREEN Negative (Negative)
[2022-11-29 08:10] LABS: VARICELLA-ZOSTER AB IGG 1063 index (Immune >165)
[2022-11-30 05:12] LABS: HCV AB Non Reactive (Non Reactive); HIV SCREEN 4TH GENERATION Non Reactive (Non Reactive)
[2022-11-30 06:12] LABS: RPR Non Reactive (Non Reactive)
== END 2022-11-28 11:41 | disposition home or self-care (01) ==
LOC: LAB 11:40
PROVIDERS: ATTEND Obstetrics & Gynecology
DX: Z34.90 Encounter for supervision of normal pregnancy, unspecified, unspecified trimester (principal)
CPT/HCPCS: 36415; 81001; 85025; 86592; 86762; 86787; 86803; 86850; 86900; 86901; 87086; 87340; 87389

== ENCOUNTER 2023-05-15 08:00 | Outpatient (CLI) | payer OTHER ==
[2023-05-15 16:22] LABS: BILIRUBIN,URINE NEGATIVE (NEGATIVE); CLARITY,URINE CLEAR (CLEAR); GLUCOSE, URINE (UA) NEGATIVE (NEGATIVE); KETONES,URINE (UA) NEGATIVE (NEGATIVE); LEUKOCYTE ESTERASE, URINE SMALL (NEGATIVE); NITRITE,URINE NEGATIVE (NEGATIVE); OCCULT BLOOD,URINE NEGATIVE (NEGATIVE); PH,URINE 6.5 PH (5.0-7.5); PROTEIN,URINE NEGATIVE (NEGATIVE); UROBILINOGEN,URINE 0.2 (NORMAL) E.U./dL (NORMAL)
[2023-05-15 16:38] LABS: BACTERIA,URINE Few /HPF (None Seen); RBC,URINE 0-5 /HPF (0-5); SQUAMOUS EPITHELIAL CELL,UR FEW Squamous (<= Few)
== END 2023-05-15 23:59 | disposition home or self-care (01) ==
LOC: LAB.WC 08:00
PROVIDERS: ATTEND Obstetrics & Gynecology
DX: Z34.90 Encounter for supervision of normal pregnancy, unspecified, unspecified trimester (principal)
CPT/HCPCS: 81001; 87086

== ENCOUNTER 2023-06-03 16:59 | Outpatient (CLI) | payer OTHER ==
--- NOTE | 2023-06-04 21:16 | Ultrasound Report ---
PROCEDURE: OB First Trimester w/TV INDICATIONS: POSITIVE TEST OUTSIDE/PRIOR DATING DATA: Last menstrual period (LMP): 04/03/2023. LMP-based estimated date of delivery (BK): 01/08/2024. First dating scan (date and location): 06/03/2023. Estimated date of delivery (BK) from first dating scan: 1424. TECHNIQUE: Real-time scanning was performed of the fetus and maternal pelvic organs, with image documentation. Endovaginal scanning was also performed to better visualize the fetus and maternal ovaries. COMPARISON: None. FINDINGS: Intrauterine gestational sac present. Embryo: Single live intrauterine is identified with crown-rump length measuring 2.1 cm cor responding to 8 weeks 5 days Heart rate: 1 76 bpm bpm. Other: Subchorionic hemorrhage is present measuring 2.2 x 0.7 x 2.6 cm Measurement variability in dating: +/- 4 weeks by LMP, +/- 7 days by mean sac diameter (use before 6 weeks gestation if crown-rump length not able to be measured), +/- 5 days by crown-rump length (6-12 weeks gestation). Maternal organs: Ovaries demonstrate a right corpus luteal cyst. IMPRESSION: Single live intrauterine with ultrasound gestational age of 8 weeks 5 days. Mild subchorionic hemorrhage. Reviewed by: Jo Ann Aguila MD on 06/04/2023 9:15 PM PDT Approved by: Jo Ann Aguila MD on 06/04/2023 9:15 PM PDT Station ID: [id number]
== END 2023-06-03 17:00 | disposition home or self-care (01) ==
LOC: DI 16:59
PROVIDERS: ATTEND Obstetrics & Gynecology
DX: O20.8 Other hemorrhage in early pregnancy (principal); Z3A.08 8 weeks gestation of pregnancy

== ENCOUNTER 2023-06-04 09:50 | Outpatient (CLI) | payer OTHER ==
[2023-06-05 02:08] LABS: HCV AB Non Reactive (Non Reactive); HIV SCREEN 4TH GENERATION Non Reactive (Non Reactive)
[2023-06-05 04:09] LABS: HBsAG SCREEN Negative (Negative)
[2023-06-05 06:11] LABS: RPR Non Reactive (Non Reactive)
[2023-06-05 12:09] LABS: VARICELLA-ZOSTER AB IGG 1118 index (Immune >165)
== END 2023-06-04 09:51 | disposition home or self-care (01) ==
LOC: LAB 09:50
PROVIDERS: ATTEND Obstetrics & Gynecology
DX: Z34.90 Encounter for supervision of normal pregnancy, unspecified, unspecified trimester (principal); Z36.89 Encounter for other specified antenatal screening
CPT/HCPCS: 36415; 85025; 86592; 86762; 86787; 86803; 86850; 86900; 86901; 87340; 87389

== ENCOUNTER 2023-06-09 14:12 | Outpatient (CLI) | payer OTHER ==
[2023-06-09 14:29] LABS: BASOPHILS % (AUTO) 0.4 %; EOSINOPHILS % (AUTO) 0.5 %; HCT - HEMATOCRIT 37.3 % (37.0-47.0); HGB - HEMOGLOBIN 12.6 g/dL (12.0-16.0); LYMPHOCYTES # (AUTO) 1.9 10^3/uL (1.5-3.5); LYMPHOCYTES % (AUTO) 23.3 %; MEAN CORPUSCULAR HEMOGLOBIN 27.8 pg (27.0-31.0); MEAN CORPUSCULAR HGB CONC 33.8 g/dL (32.0-36.0); MEAN CORPUSCULAR VOLUME 82.2 fL (81.0-99.0); MONOCYTES # (AUTO) 0.6 10^3/uL (0.0-1.0); MONOCYTES % (AUTO) 7.2 %; NEUTROPHILS # (AUTO) 5.5 10^3/uL (1.5-6.6); NEUTROPHILS % (AUTO) 68.4 %; PLT - PLATELET COUNT 252 10^3/uL (130-450); RED BLOOD COUNT 4.54 10^6/uL (4.20-5.40)
== END 2023-06-09 14:13 | disposition home or self-care (01) ==
LOC: LAB 14:12
PROVIDERS: ATTEND Obstetrics & Gynecology
DX: Z34.90 Encounter for supervision of normal pregnancy, unspecified, unspecified trimester (principal); Z36.89 Encounter for other specified antenatal screening
CPT/HCPCS: 36415; 85025; 86850; 86900; 86901

== ENCOUNTER 2023-06-11 08:00 | Outpatient (CLI) | payer OTHER ==
[2023-06-11 23:39] LABS: CHLAMYDIA TRACHOMATIS DNA NEGATIVE (NEGATIVE); NEISSERIA GONORRHOEAE DNA NEGATIVE (NEGATIVE); TRICHOMONAS VAGINALIS DNA NEGATIVE (NEGATIVE)
== END 2023-06-11 23:59 | disposition home or self-care (01) ==
LOC: LAB.WC 08:00
PROVIDERS: ATTEND Obstetrics & Gynecology
DX: Z11.3 Encounter for screening for infections with a predominantly sexual mode of transmission (principal)
CPT/HCPCS: 87491; 87591; 87661

== ENCOUNTER 2023-07-16 09:08 | Outpatient (CLI) | payer OTHER | END 2023-07-16 09:09 | disposition home or self-care (01) | LOC: LAB 09:08 | PROVIDERS: ATTEND Obstetrics & Gynecology | DX: Z86.32 Personal history of gestational diabetes (principal) | CPT/HCPCS: 36415; 82950 ==

== ENCOUNTER 2023-08-15 07:48 | Outpatient (CLI) | payer OTHER ==
[2023-08-15 08:35] LABS: GTT GLUCOSE,FASTING 95 mg/dL (74-109)
[2023-08-18 13:09] LABS: AFP MOM 1.23 (.); AFP VALUE 49.3 ng/mL (.); GEST. AGE ON COLLECTION DATE 19.1 weeks (.); INSULIN DEP DIABETES No (.); MATERNAL AGE AT EDD 38.1 yr (.); MULTIPLE GESTATION No (.); OPEN SPINA BIFIDA RISK 1 IN 5926 (.); RACE Caucasian (.); RESULTS Report (.); TEST RESULTS *Screen Negative* (.); WEIGHT 223 lbs (.)
== END 2023-08-15 07:49 | disposition home or self-care (01) ==
LOC: LAB 07:48
PROVIDERS: ATTEND Obstetrics & Gynecology
DX: O09.522 Supervision of elderly multigravida, second trimester (principal); O99.810 Abnormal glucose complicating pregnancy; Z86.32 Personal history of gestational diabetes
CPT/HCPCS: 36415; 82105; 82951; 82952

== ENCOUNTER 2023-08-25 16:57 | Outpatient (CLI) | payer OTHER ==
--- NOTE | 2023-08-26 15:40 | Ultrasound Report ---
PROCEDURE: OB 14+ Weeks INDICATIONS: SUPERVISION OF OUTSIDE/PRIOR DATING DATA: Last menstrual period (LMP): 04/03/2023. LMP-based estimated date of delivery (BK): 01/08/2024. First dating scan (date and location): 06/03/2023. Estimated date of delivery (BK) from first dating scan: 01/08/2024. The below data below was generated using the ultrasound/clinical BK of 01/08/2024 TECHNIQUE: Real-time scanning was performed of the fetus, with image documentation and biometric measurements. COMPARISON: OB ultrasound 06/03/2023 FINDINGS: General: A single living intrauterine gestation is present. Presentation: Vertex Placenta: Placental position is posterior, without previa. Amniotic fluid index: 14.3 cm, within normal limits for gestational age. heart rate: 155 beats per minute. Maternal cervical canal: 5 cm long; normal length is 2.5 cm or more. biometrics: Biparietal diameter: 5.0 cm 21 weeks 1 day 71st percentile Head circumference: 19.8 cm 22 weeks 0 days 92nd percentile Abdominal circumference: 17.4 cm 22 weeks 2 days 91st percentile Femur length: 3.7 cm 20 weeks 5 days 83rd percentile Estimated gestational age from initial scan: 20 weeks 4 days Composite gestational age from present scan: 21 weeks 4 days Estimated weight and percentile: 469 g 98 percentile Measurement variability for biometric dating: +/- 10 days from 12-20 weeks gestation, +/- 2 weeks fro m 20-30 weeks gestation, +/- 3 weeks for 30 weeks gestation or later. Anatomic survey: Neuro: Ventricles are non-dilated at less than 10 mm. Cisterna magna is normal at 3-11 mm. Cerebel lum is normal in size and morphology. Face: Nose and lips, facial profile are not well seen. Spine: Not well seen. Heart: 4-chambered heart is and ventricular outflow tracts are not well seen. Diaphragm: Diaphragm is intact. Stomach: Left-sided stomach is present. Kidneys: No hydronephrosis. Normal is less than 5 mm in 2nd trimester, less than 7 mm in 3rd trimester. Cord: 3-vessel cord has orthotopic insertion. Bladder: Normal in size. Extremities: Right upper extremity is not visualized. IMPRESSION: Single live intrauterine with ultrasound gestational age today of 21 weeks 4 days. Facial profile, spine, four-chamber heart/outflow tracts as well as upper extremity is not well visua lized. Recommend follow-up imaging for further evaluation. Reviewed by: Jo Ann Aguila MD on 08/26/2023 3:38 PM PST Approved by: Jo Ann Aguila MD on 08/26/2023 3:38 PM PST Station ID: [id number]
== END 2023-08-25 16:58 | disposition home or self-care (01) ==
LOC: DI 16:57
PROVIDERS: ATTEND Obstetrics & Gynecology
DX: O09.522 Supervision of elderly multigravida, second trimester (principal); Z3A.21 21 weeks gestation of pregnancy

== ENCOUNTER 2023-09-18 18:54 | Outpatient (CLI) | payer OTHER ==
--- NOTE | 2023-09-19 09:02 | Ultrasound Report ---
PROCEDURE: OB F/U or Repeat INDICATIONS: SUPERVISON OF OUTSIDE/PRIOR DATING DATA: Last menstrual period (LMP): 04/03/2023. LMP-based estimated date of delivery (BK): 01/08/2024. First dating scan (date and location): 06/03/2023. Estimated date of delivery (KB) from first dating scan: 01/08/2024. The below data below was generated using the clinical BK of 01/08/2024 TECHNIQUE: Real-time scanning was performed of the fetus, with image documentation and biometric measurements. Endovaginal scanning: Not performed. COMPARISON: Ultrasound 08/25/2023 FINDINGS: General: A single living intrauterine gestation is present. Presentation: Vertex Placenta: Placental position is posterior, without previa. Amniotic fluid index: 20.4 cm, within normal limits for gestational age. heart rate: 147 beats per minute. Maternal cervical canal: 4.8 cm long; normal length is 2.5 cm or more. Other: The nose, lips and right ventricular outflow tracts are not well seen secondary to posit ioning. The four-chamber heart and left ventricular outflow tract is within normal limits. Normal cecily earance of the spine and extremities. IMPRESSION: 1.Single live intrauterine . 2.The right ventricular outflow tracts, nose and lips are not well seen secondary to positionin g. Consider follow-up ultrasound. The remainder of the heart, spine and extremities are within normal limits. Reviewed by: Keron Cade MD on 09/19/2023 9:00 AM PST Approved by: Keron Cade MD on 09/19/2023 9:00 AM PST Station ID: [id number]
== END 2023-09-18 18:55 | disposition home or self-care (01) ==
LOC: DI 18:54
PROVIDERS: ATTEND Nurse Practitioner
DX: O09.522 Supervision of elderly multigravida, second trimester (principal); Z3A.00 Weeks of gestation of pregnancy not specified

== ENCOUNTER 2023-09-30 16:47 | Outpatient (CLI) | payer OTHER ==
--- NOTE | 2023-10-01 12:47 | Ultrasound Report ---
PROCEDURE: OB Follow up INDICATIONS: SUPERVISION OF OUTSIDE/PRIOR DATING DATA: Last menstrual period (LMP): 04/03/2023. LMP-based estimated date of delivery (BK): 01/08/2024. First dating scan (date and location): 06/03/2023. Estimated date of delivery (BK) from first dating scan: 01/08/2024. The below data below was generated using the working BK of 01/08/2024 TECHNIQUE: Real-time scanning was performed of the fetus, with image documentation and biometric measurements. Endovaginal scanning: Not performed. COMPARISON: 09/10/2023 FINDINGS: General: A single living intrauterine gestation is present. Presentation: Breech Placenta: Placental position is posterior, without previa. Amniotic fluid index: 15.0 cm, within normal limits for gestational age. Largest pocket is 4.2 cm. heart rate: 171 beats per minute. Maternal cervical canal: Closed and 5.2 cm long; normal length is 2.5 cm or more. Estimated gestational age from initial scan: 25 weeks 5 days Other: Right ventricular cardiac outflow tract is well seen and appears normal. facial features including nose and lips are seen and normal. Incidental note of nuchal cord (most frequently transie nt). IMPRESSION: 1. Single living intrauterine . 2. Completion of anatomic survey with visualization of right ventricular outflow tract, n ose, and lips. Reviewed by: Glenda Apodaca MD on 10/01/2023 12:46 PM PST Approved by: Glenda Apodaca MD on 10/01/2023 12:46 PM PST Station ID: [id number]
== END 2023-09-30 16:48 | disposition home or self-care (01) ==
LOC: DI 16:47
PROVIDERS: ATTEND Nurse Practitioner
DX: O09.522 Supervision of elderly multigravida, second trimester (principal); Z3A.00 Weeks of gestation of pregnancy not specified

== ENCOUNTER 2023-11-13 08:00 | Outpatient (CLI) | payer OTHER ==
[2023-11-13 16:36] LABS: CREATININE,URINE 53.3 mg/dL; PROTEIN/CREATININE RATIO,URINE 0.2 (<=0.2)
== END 2023-11-13 23:59 | disposition home or self-care (01) ==
LOC: LAB.WC 08:00
PROVIDERS: ATTEND Nurse Practitioner
DX: R03.0 Elevated blood-pressure reading, without diagnosis of hypertension (principal)
CPT/HCPCS: 82570; 84156

== ENCOUNTER 2023-11-14 16:33 | Outpatient (CLI) | payer OTHER ==
--- NOTE | 2023-11-16 14:19 | Ultrasound Report ---
PROCEDURE: OB Follow up INDICATIONS: GESTATIONAL DIABETES OUTSIDE/PRIOR DATING DATA: Last menstrual period (LMP): 04/03/2023. LMP-based estimated date of delivery (BK): 01/08/2024. First dating scan (date and location): 05/24/2023. Estimated date of delivery (BK) from first dating scan: 01/08/2024. The below data below was generated using the clinical BK of 01/08/2024 TECHNIQUE: Real-time scanning was performed of the fetus, with image documentation and biometric measurements. Endovaginal scanning: Not performed. COMPARISON: 09/30/2023, 09/10/2023 FINDINGS: General: A single living intrauterine gestation is present. Presentation: Vertex Placenta: Placental position is posterior, without previa. Amniotic fluid index: 13.6 cm, within normal limits for gestational age. heart rate: 152 beats per minute. Maternal cervical canal: 3.9 cm long; normal length is 2.5 cm or more. biometrics: Biparietal diameter: 8.45 cm Head circumference: 32.05 cm Abdominal circumference: 29.41 cm Femur length: 6.21 cm Estimated gestational age from initial scan: 32 weeks, 1 day Composite gestational age from present scan: 34 weeks, 0 day Estimated weight and percentile: 2182 g, 78.6% Measurement variability in biometric dating: +/- 10 days from 12-20 weeks gestation, +/- 2 weeks from 20-30 weeks gestation, +/- 3 weeks at 30 weeks gestation or more. Other: Not applicable. IMPRESSION: Single intrauterine gestation with estimated clinical age of 34 weeks, 0 days based on f etal biometry. weight 78.6 percentile. Posterior placenta without previa. Normal MARS. Reviewed by: Ayse Coppola MD on 11/16/2023 2:18 PM PST Approved by: Ayse Coppola MD on 11/16/2023 2:18 PM PST Station ID: [id number]
== END 2023-11-14 16:34 | disposition home or self-care (01) ==
LOC: DI 16:33
PROVIDERS: ATTEND Obstetrics & Gynecology
DX: O24.410 Gestational diabetes mellitus in pregnancy, diet controlled (principal); Z3A.34 34 weeks gestation of pregnancy

== ENCOUNTER 2023-11-20 11:40 | Outpatient (CLI) | payer OTHER ==
--- NOTE | 2023-11-20 21:37 | Ultrasound Report ---
PROCEDURE: OB Limited INDICATIONS: GESTATIONAL DIABETES OUTSIDE/PRIOR DATING DATA: Last menstrual period (LMP): 04/03/2023. LMP-based estimated date of delivery (BK): 01/08/2024. First dating scan (date and location): 06/03/2023. Estimated date of delivery (BK) from first dating scan: 01/08/2024. The below data below was generated using the clinical/ultrasound BK of 01/08/2024 TECHNIQUE: Real-time scanning was performed of the fetus, with image documentation. COMPARISON: OB ultrasound 11/14/2023 FINDINGS: A single living intrauterine gestation is present. Presentation: Vertex Placenta: Placental position is posterior, without previa. Amniotic fluid index: 16.5 cm, 64th percentile for gestational age. 4.5 cm heart rate: 144 beats per minutes. Maternal cervical canal: 4.9 cm long; normal length is 2.5 cm or more. Estimated gestational age from initial scan: 33 weeks 0 days. IMPRESSION: Single live intrauterine with gestational age 33 weeks 0 days. MARS is within normal limits. Reviewed by: Jo Ann Aguila MD on 11/20/2023 9:36 PM PST Approved by: Jo Ann Aguila MD on 11/20/2023 9:36 PM PST Station ID: [id number]
== END 2023-11-20 11:41 | disposition home or self-care (01) ==
LOC: DI 11:40
PROVIDERS: ATTEND Obstetrics & Gynecology
DX: O24.410 Gestational diabetes mellitus in pregnancy, diet controlled (principal); Z3A.33 33 weeks gestation of pregnancy

== ENCOUNTER 2023-11-27 09:53 | Outpatient (CLI) | payer OTHER ==
[2023-11-27 10:11] VITALS: BP 118/71
--- NOTE | 2023-11-28 17:49 | PROCEDURE REPORT ---
- HPI Diagnosis/Indication for NST: Gestational Diabetes Current EDU 01/08/24 Gestation 34 Weeks and 0 Days 2 Para 1 Vital Signs Temperature 98.1 F 11/27/23 10:05 Heart Rate 71 11/27/23 10:05 Respiratory Rate 16 11/27/23 10:05 Blood Pressure 118/71 11/27/23 10:05 Temperature 98.1 F 11/27/23 10:05 Heart Rate 71 11/27/23 10:05 Respiratory Rate 16 11/27/23 10:05 Blood Pressure 118/71 11/27/23 10:05 O2 Saturation If not protocol: Oxygen Flow, liters/minute - NST Procedure NST Procedure Start Date 11/27/23 Start Time 10:00 Stop Time 11:04 Vibroacoustic Stimulation Used No Patient States Movement Yes NST reivewed. normal baseline. moderate variability. + acels. no decels. assessment: reactive NST Plan: care as scheduled.
== END 2023-11-27 11:00 | disposition home or self-care (01) ==
LOC: WFO 09:53 → FBP 09:53 → WFO 11:00
PROVIDERS: ATTEND Obstetrics & Gynecology
DX: O24.410 Gestational diabetes mellitus in pregnancy, diet controlled (principal); Z3A.34 34 weeks gestation of pregnancy
CPT/HCPCS: 59025

== ENCOUNTER 2023-12-02 11:40 | Outpatient (CLI) | payer OTHER ==
--- NOTE | 2023-12-02 15:57 | Ultrasound Report ---
PROCEDURE: OB Limited INDICATIONS: GESTATIONAL DIABETES OUTSIDE/PRIOR DATING DATA: Last menstrual period (LMP): 04/03/2023. LMP-based estimated date of delivery (BK): 01/08/2024. First dating scan (date and location): 06/03/2023. Estimated date of delivery (BK) from first dating scan: 01/08/2024. The below data below was generated using the working BK of 01/08/2024 TECHNIQUE: Real-time scanning was performed of the fetus, with image documentation. Endovaginal scanning: Not indicated COMPARISON: 11/25/2023 FINDINGS: A single living intrauterine gestation is present. Presentation: Vertex Placenta: Placental position is posterior, without previa. Amniotic fluid index: 14.9 cm, normal for gestational age. Largest pocket measures 4.8 cm. heart rate: 145 beats per minutes. Maternal cervical canal: Not evaluated. Estimated gestational age from initial scan: 34 weeks, 5 days.. IMPRESSION: 1. Single live intrauterine gestation with fetus in vertex presentation. heart rate is 145 bpm. 2. Normal amount of amniotic fluid. MARS equals 14.9 cm with the largest pocket measures 4.8 cm. Reviewed by: Lake Davis MD on 12/02/2023 3:56 PM PDT Approved by: Lake Davis MD on 12/02/2023 3:56 PM PDT Station ID: [id number]
== END 2023-12-02 11:41 | disposition home or self-care (01) ==
LOC: DI 11:40
PROVIDERS: ATTEND Obstetrics & Gynecology
DX: O24.410 Gestational diabetes mellitus in pregnancy, diet controlled (principal); Z3A.34 34 weeks gestation of pregnancy

== ENCOUNTER 2023-12-02 11:58 | Outpatient (CLI) | payer OTHER ==
[2023-12-02 12:19] VITALS: BP 133/60
--- NOTE | 2023-12-02 13:31 | PROCEDURE REPORT ---
- HPI Diagnosis/Indication for NST: Gestational Diabetes Vital Signs Temperature 98.8 F 12/02/23 12:10 Heart Rate 70 12/02/23 12:10 Respiratory Rate 17 12/02/23 12:10 Blood Pressure 133/60 H 12/02/23 12:10 Temperature 98.8 F 12/02/23 12:10 Heart Rate 70 12/02/23 12:10 Respiratory Rate 17 12/02/23 12:10 Blood Pressure 133/60 H 12/02/23 12:10 O2 Saturation If not protocol: Oxygen Flow, liters/minute - NST Procedure NST Procedure Start Time 10:00 Stop Time 11:04 - Results and Plan Findings/Impression: Reactive for of 32 weeks gestation or more. NST tracing contains at least two heart rate accelerations that are at least 15 beats per minute above the baseline rate and lasting at least 15 seconds from onset to return to baseline within a twenty minute period. Plan: care as scheduled.
== END 2023-12-02 12:50 | disposition home or self-care (01) ==
LOC: WFO 11:58 → FBP 11:59 → WFO 12:50
PROVIDERS: ATTEND Obstetrics & Gynecology
DX: O24.410 Gestational diabetes mellitus in pregnancy, diet controlled (principal); Z3A.32 32 weeks gestation of pregnancy; Z3A.34 34 weeks gestation of pregnancy
CPT/HCPCS: 59025

== ENCOUNTER 2023-12-05 11:53 | Outpatient (CLI) | payer OTHER ==
[2023-12-05 12:21] VITALS: BP 128/73
[2023-12-05 13:00] VITALS: O2SAT 98
--- NOTE | 2023-12-05 16:18 | PROCEDURE REPORT ---
- HPI Diagnosis/Indication for NST: Other (AMA) Current EDU 01/08/24 Gestation 35 Weeks and 1 Days 3 Para 1 Vital Signs Temperature 98.4 F 12/05/23 12:04 Heart Rate 83 12/05/23 12:04 Respiratory Rate 16 12/05/23 12:04 Blood Pressure 128/73 12/05/23 12:04 Temperature 98.4 F 12/05/23 12:30 Heart Rate 83 12/05/23 12:30 Respiratory Rate 16 12/05/23 12:30 Blood Pressure 128/73 12/05/23 12:30 O2 Saturation 98 12/05/23 12:10 If not protocol: Oxygen Flow, liters/minute - NST Procedure NST Procedure Start Date 12/05/23 Start Time 12:00 Stop Time 12:27 Vibroacoustic Stimulation Used No Patient States Movement Yes - Results and Plan Findings/Impression: Reactive for of 32 weeks gestation or more. NST tracing contains at least two heart rate accelerations that are at least 15 beats per minute above the baseline rate and lasting at least 15 seconds from onset to return to baseline within a twenty minute period. Plan: care as scheduled
== END 2023-12-05 12:35 | disposition home or self-care (01) ==
LOC: WFO 11:53 → FBP 11:56 → WFO 12:35
PROVIDERS: ATTEND Obstetrics & Gynecology
DX: O24.410 Gestational diabetes mellitus in pregnancy, diet controlled (principal); Z3A.35 35 weeks gestation of pregnancy
CPT/HCPCS: 59025

== ENCOUNTER 2023-12-09 11:53 | Outpatient (CLI) | payer OTHER ==
[2023-12-09 12:17] VITALS: BP 129/72
[2023-12-09 12:18] VITALS: O2SAT 96
--- NOTE | 2023-12-09 20:52 | PROCEDURE REPORT ---
- HPI Diagnosis/Indication for NST: Gestational Diabetes Current EDU 01/08/24 Gestation 35 Weeks and 5 Days 3 Para 1 Vital Signs Temperature 98.1 F 12/09/23 12:02 Heart Rate 72 12/09/23 12:02 Respiratory Rate 18 12/09/23 12:02 Blood Pressure 129/72 12/09/23 12:02 Temperature 98.1 F 12/09/23 13:20 Heart Rate 72 12/09/23 13:20 Respiratory Rate 18 12/09/23 13:20 Blood Pressure 129/72 12/09/23 13:20 O2 Saturation 96 12/09/23 12:13 If not protocol: Oxygen Flow, liters/minute - NST Procedure NST Procedure Start Date 12/09/23 Start Time 12:00 Stop Time 13:19 Vibroacoustic Stimulation Used Yes Patient States Movement Yes - Results and Plan Findings/Impression: Reactive for of 32 weeks gestation or more. NST tracing contains at least two heart rate accelerations that are at least 15 beats per minute above the baseline rate and lasting at least 15 seconds from onset to return to baseline within a twenty minute period. Plan: care as scheduled
== END 2023-12-09 13:25 | disposition home or self-care (01) ==
LOC: FBP 11:53 → WFO 11:53
PROVIDERS: ATTEND Obstetrics & Gynecology
DX: O24.410 Gestational diabetes mellitus in pregnancy, diet controlled (principal); Z3A.35 35 weeks gestation of pregnancy
CPT/HCPCS: 59025

== ENCOUNTER 2023-12-11 08:00 | Outpatient (CLI) | payer OTHER | END 2023-12-11 23:59 | disposition home or self-care (01) | LOC: LAB.WC 08:00 | PROVIDERS: ATTEND Obstetrics & Gynecology | DX: Z36.85 Encounter for antenatal screening for Streptococcus B (principal) | CPT/HCPCS: 87797 ==

== ENCOUNTER 2023-12-11 14:55 | Outpatient (CLI) | payer OTHER ==
--- NOTE | 2023-12-11 19:37 | Ultrasound Report ---
PROCEDURE: OB Follow up INDICATIONS: GESTATIONAL DIABETES OUTSIDE/PRIOR DATING DATA: Last menstrual period (LMP): 04/03/2023. LMP-based estimated date of delivery (BK): 01/08/2024. First dating scan (date and location): 06/03/2023. Estimated date of delivery (BK) from first dating scan: 01/08/2024. The below data below was generated using the working BK of 01/08/2024 TECHNIQUE: Real-time scanning was performed of the fetus, with image documentation and biometric measurements. Endovaginal scanning: Not performed. COMPARISON: 11/11/1923, 11/25/2023, 12/02/2023 FINDINGS: General: A single living intrauterine gestation is present. Presentation: Vertex Placenta: Placental position is posterior, without previa. Amniotic fluid index: 11.5 cm, within normal limits for gestational age. heart rate: 153 beats per minute. Maternal cervical canal: Not evaluated. biometrics: Biparietal diameter: 9.3 cm, 38 weeks, 0 day, 96% Head circumference: 34.1 cm, 39 weeks, 2 days, 91%. Abdominal circumference: 34.6 cm, 38 weeks, 3 days, 98% Femur length: 6.7 cm, 34 weeks, 5 days, 15% Estimated gestational age from initial scan: 36 weeks, 0 day Composite gestational age from present scan: 37 weeks, 4 days Estimated weight and percentile: 3264 g, 90%. Measurement variability in biometric dating: +/- 10 days from 12-20 weeks gestation, +/- 2 weeks from 20-30 weeks gestation, +/- 3 weeks at 30 weeks gestation or more. Other: Not applicable. IMPRESSION: 1. Single live intrauterine gestation with fetus in vertex presentation. heart rate is 153 bpm. Normal amount of amniotic fluid. MARS equals 11.5 cm with the largest pocket measures 6.0 cm. Estimat ed weight is at 90%. Reviewed by: Lake Gaines MD on 12/11/2023 7:35 PM PDT Approved by: Lake Gaines MD on 12/11/2023 7:35 PM PDT Station ID: [id number]
== END 2023-12-11 14:56 | disposition home or self-care (01) ==
LOC: DI 14:55
PROVIDERS: ATTEND Obstetrics & Gynecology
DX: O24.419 Gestational diabetes mellitus in pregnancy, unspecified control (principal); Z3A.37 37 weeks gestation of pregnancy; Z36.85 Encounter for antenatal screening for Streptococcus B
CPT/HCPCS: 87797

== ENCOUNTER 2023-12-11 14:56 | Outpatient (CLI) | payer OTHER | END 2023-12-11 14:57 | disposition home or self-care (01) | LOC: DI 14:56 | PROVIDERS: ATTEND Obstetrics & Gynecology | DX: Z53.9 Procedure and treatment not carried out, unspecified reason (principal) ==

== ENCOUNTER 2023-12-12 11:52 | Outpatient (CLI) | payer OTHER ==
[2023-12-12 13:03] VITALS: BP 121/68
--- NOTE | 2023-12-12 23:19 | PROCEDURE REPORT ---
- HPI Diagnosis/Indication for NST: Other (AMA, Crohns) Current EDU 01/08/24 Gestation 36 Weeks and 1 Days 3 Para 1 Vital Signs Temperature 98.1 F 12/12/23 12:05 Heart Rate 71 12/12/23 12:05 Respiratory Rate 16 12/12/23 12:05 Blood Pressure 144/73 H 12/12/23 12:05 Temperature 98.1 F 12/12/23 12:05 Heart Rate 65 12/12/23 12:05 Respiratory Rate 16 12/12/23 12:05 Blood Pressure 121/68 12/12/23 12:05 O2 Saturation If not protocol: Oxygen Flow, liters/minute - NST Procedure NST Procedure Start Date 12/12/23 Start Time 11:58 Stop Time 12:43 Vibroacoustic Stimulation Used No Patient States Movement Yes - Results and Plan Findings/Impression: Reactive for of 32 weeks gestation or more. NST tracing contains at least two heart rate accelerations that are at least 15 beats per minute above the baseline rate and lasting at least 15 seconds from onset to return to baseline within a twenty minute period. Plan: care as scheduled
== END 2023-12-12 12:49 | disposition home or self-care (01) ==
LOC: WFO 11:52 → FBP 11:57 → WFO 12:49
PROVIDERS: ATTEND Obstetrics & Gynecology
DX: O24.410 Gestational diabetes mellitus in pregnancy, diet controlled (principal); O99.613 Diseases of the digestive system complicating pregnancy, third trimester; K50.90 Crohn's disease, unspecified, without complications; Z3A.36 36 weeks gestation of pregnancy
CPT/HCPCS: 59025

== ENCOUNTER 2023-12-15 11:54 | Outpatient (CLI) | payer OTHER ==
[2023-12-15 12:25] VITALS: BP 126/68; O2SAT 99
--- NOTE | 2023-12-15 17:01 | PROCEDURE REPORT ---
- HPI Diagnosis/Indication for NST: Gestational Diabetes Current EDU 01/08/24 Gestation 36 Weeks and 4 Days 2 Para 1 Vital Signs Temperature 98.6 F 12/15/23 12:05 Heart Rate 67 12/15/23 12:05 Respiratory Rate 16 12/15/23 12:05 Blood Pressure 127/69 12/15/23 12:05 O2 Saturation 99 12/15/23 12:05 Temperature 97.9 F 12/15/23 12:55 Heart Rate 94 12/15/23 12:55 Respiratory Rate 16 12/15/23 12:55 Blood Pressure 126/68 12/15/23 12:55 O2 Saturation 99 12/15/23 12:05 If not protocol: Oxygen Flow, liters/minute - NST Procedure NST Procedure Start Date 12/15/23 Start Time 12:01 Stop Time 12:58 Vibroacoustic Stimulation Used Yes: once Patient States Movement Yes - Results and Plan Plan: Patient is a 38-year-old -0-0-1 at 36 weeks 4 days gestation here for NST. NST Performed 12/15/2023 NST Read 12/15/2023 FHT: 140 bpm baseline, moderate variability, accelerations present, no decelerations. Reactive NST [place]: Quiescent Diagnosis 36 weeks gestation Gestational diabetes Continue with scheduled OB care
== END 2023-12-15 12:55 | disposition home or self-care (01) ==
LOC: WFO 11:54 → FBP 11:57 → WFO 12:55
PROVIDERS: ATTEND Obstetrics & Gynecology
DX: O24.410 Gestational diabetes mellitus in pregnancy, diet controlled (principal); Z3A.36 36 weeks gestation of pregnancy
CPT/HCPCS: 59025

== ENCOUNTER 2023-12-16 11:44 | Outpatient (CLI) | payer OTHER ==
--- NOTE | 2023-12-16 14:57 | Ultrasound Report ---
PROCEDURE: OB Limited INDICATIONS: GESTATIONAL DIABETES OUTSIDE/PRIOR DATING DATA: Last menstrual period (LMP): 04/03/2023. LMP-based estimated date of delivery (BK): 01/18/2024. First dating scan (date and location): 06/03/2023. Estimated date of delivery (BK) from first dating scan: 01/08/2024. The below data below was generated using the working BK of 01/08/2024 TECHNIQUE: Real-time scanning was performed of the fetus, with image documentation. Endovaginal scanning: None COMPARISON: None. FINDINGS: A single living intrauterine gestation is present. Presentation: Cephalic Placenta: Placental position is posterior, without previa. Amniotic fluid index: 16.1 cm, 64.7 percentile for gestational age. heart rate: 153 beats per minutes. Maternal cervical canal: Not well seen Estimated gestational age from initial scan: 36 week 5 day. IMPRESSION: Single live intrauterine consistent with 36 week 5 day gestation. MARS 16.1 cm. Reviewed by: Conrado Mclean MD on 12/16/2023 1:55 PM MEÑO Approved by: Conrado Mclean MD on 12/16/2023 1:55 PM MEÑO Station ID: [id number]
== END 2023-12-16 11:45 | disposition home or self-care (01) ==
LOC: DI 11:44
PROVIDERS: ATTEND Obstetrics & Gynecology
DX: O24.410 Gestational diabetes mellitus in pregnancy, diet controlled (principal); Z3A.36 36 weeks gestation of pregnancy

== ENCOUNTER 2023-12-17 06:42 | Inpatient (IN) | payer OTHER ==
[2023-12-17 07:25] LABS: RUPTURE OF MEMBRANES PLUS POSITIVE (NEGATIVE)
[2023-12-17] MEDS ORDERED: METHYLERGONOVINE 0.2 MG/ML VIAL IM PRN (07:39)
[2023-12-17] MEDS ORDERED: LABETALOL 20 MG/4 ML SYRINGE IVP PRN ×3 (07:39)
[2023-12-17] MEDS ORDERED: miSOPROStoL 200 MCG TABLET BC PRN (07:39)
[2023-12-17] MEDS ORDERED: NIFEdipine 10 MG CAPSULE PO PRN (07:39)
[2023-12-17] MEDS ORDERED: TERBUTALINE 1 MG/ML VIAL SUBQ PRN (07:39)
[2023-12-17] MEDS ORDERED: hydrALAZINE INJ 20 MG/ML VIAL IVP PRN ×2 (07:39)
[2023-12-17] MEDS ORDERED: fentaNYL 100 MCG/2 ML VIAL IVP PRN (07:39)
[2023-12-17] MEDS ORDERED: ONDANSETRON ODT 4 MG TABLET TL PRN (07:39)
[2023-12-17] MEDS ORDERED: TRANEXAMIC ACID IN NACL 1,000 MG/100 ML BAG IV PRN (07:39)
[2023-12-17] MEDS ORDERED: SODIUM CHLORIDE FLUSH 0.9% 10 ML SYRINGE IVP PRN (07:39)
[2023-12-17] MEDS ORDERED: lidocaine 1% 20 ML MDV ID PRN (07:39)
[2023-12-17] MEDS ORDERED: OXYTOCIN/SODIUM CHLORIDE 500 ML IV PRN (07:39)
[2023-12-17] MEDS ORDERED: LACTATED RINGERS 1,000 ML IV PRN (07:39)
[2023-12-17] MEDS ORDERED: OXYTOCIN 10 UNIT/ML VIAL IM PRN (07:39)
[2023-12-17] MEDS ORDERED: miSOPROStoL 200 MCG TABLET PR PRN (07:39)
--- NOTE | 2023-12-17 07:41 | HISTORY & PHYSICAL EXAMINATION ---
Admit History - Visit Reason Visit Reason: Membranes rupture - : 3 Parity: 1 : 1 Risk/History: positive: Gestational diabetes Complications This : positive: Gestational diabetes, Other (AMA, RH negative, ulcerative colitis) Smoking Status: Never smoker - Mother's Labs Mother's Blood Type: positive: A Mother's RH: positive: Negative GBS: positive: Group B Step Negative Rubella Status: positive: Immune - Other Maternal History Other Maternal History: HPI: Patient is a 38-year-old -0-1-1 at 36 weeks 6 days gestation here for ruptu re membranes. She felt a gush of fluid several hours ago and called the after- hours line. She was advised to come in, and on admission, she is grossly fluid.. She has good movement. Denies loss of fluid. No ELIAS/BV or RUQP. No vaginal bleeding. Denies nausea and vomiting. Denies urinary urgency or dysuria. All other symptoms reviewed and were negative except per HPI. Course LMP: 04/03/23 BK by LMP: 01/08/24 US: 06/03/23 @ 8w5d c/w LMP Final BK: 01/08/24 AMA: cfDNA wnl, AFP ordered 07/11 Aspirin 81 mg at 12 weeks Ulcerative colitis: No recent flares. taking mesalamine. GDMA2 -Previous as well. -500mg Metformin with dinner. Good control -NST/MARS ordered. Growth scans ordered for 32 and 36 weeks. 11/14-2182g 78.6%ile, 11/24-MARS 20.0, 12/01- MARS 14.9 Rh- RhoGAM given 10/16 FOB: [place], 2yo son: Kyler. Pre- Weight: 228 BMI: 36.28 Blood type: A- Antibody:Negative CBC: PLT 252 HCT 37.3 HGB 12.6 RUB:IMMUNE VZV:IMMUNE HBsAg: NEGATIVE HepC:NON REACTIVE RPR/AB-EIA:NON REACTIVE HIV:NON REACTIVE PAP:01/11/2021 NORMAL GC/CT:Negative HSV:Denies in self or partner Genetic Testin/26 NIPT NEGATIVE; 08/15 AFP- Negative Covid: x2 Flu: 06/11/23 FAS: 08/25/2023 Placenta: Posterior Cord: 3 Vessel MARS: 14.3cm EFW:: 469g; 98%tile Early 50g GCT- 07/16 159 3HR GTT: early 08/15- F-95; 1hr-186; 2hr-169; 3hr-129 TDAP:10/16 Breast Pump: 10/02/2023 RHOGAM:10/16 Antibody screen:10/10- negative 3rd jctfmaxnz24.5/36.7%/215 GBS:collected 12/10 Delivery plan:39-week induction Contraception: Partner vasectomy PMH Ulcerative colitis Vitamin D deficiency Gestational diabetes PSH Colonoscopy OB History -0-1-1 1. 08/09/2021, 39 weeks 1 day, , male, 7 pounds 8 ounces, vacuum-assisted vaginal delivery 2. 11/28/2022, spontaneous SH Denies tobacco, alcohol, drugs Family History Mother: Diverticulosis Father: Diabetes, coronary disease Paternal grandfather: Diabetes, heart disease Aunt: Colon cancer Allergies No known drug allergies Medications Metformin Aspirin Mesalamine 2.4 g once a day Physical exam: General: Alert, oriented, no acute distress Head: Normal cephalic atraumatic Eyes: PERRLA, extraocular motions intact. Respiratory: Normal rate of respiration. No accessory muscle use, normal respiratory effort. Cardiovascular: Regular rate and rhythm Abdomen: Gravid, nontender, nondistended Extremities: Normal range of motion Neuro: Oriented x3. Normal movements Psych: Appropriate mood and affect. Normal judgment and insight SVE: 2/50/-3 FHT: 150 beats per minute baseline, moderate variability, accelerations absent, no decelerations. Index: Irregular Plan 38-year-old -0-1-1 at 36 weeks 6 days gestation admitted for , prelabor rupture membranes 1. , prelabor rupture of membranes -Admit to L&D, admit labs, epidural at patient's request. Will start oxytocin for augmentation. 2. 36 weeks gestation 3. Advanced maternal age 4.A2 GDM -Every 4 hour glucose checks, increase in active labor. 5. Ulcerative colitis -Mesalamine the patient desires 6.Rh- Assessment - - HPI Vital Signs Temperature 97.7 F 12/17/23 06:53 Heart Rate 91 12/17/23 06:53 Respiratory Rate 16 12/17/23 06:53 Blood Pressure 131/91 H 12/17/23 06:53 Temperature 97.7 F 12/17/23 06:53 Heart Rate 91 12/17/23 06:53 Respiratory Rate 16 12/17/23 06:53 Blood Pressure 131/91 H 12/17/23 06:53 O2 Saturation If not protocol: Oxygen Flow, liters/minute - NST Procedure NST Procedure Start Time 12:01 Stop Time 12:58 Meds/Allgy - Home Medications Home Medications: Ambulatory Orders Medication Instructions Recorded Confirmed Aspirin EC [Ecotrin] 81 mg PO DAILY 08/09/21 08/09/21 Mesalamine [Lialda] 2.4 gm PO DAILY 08/09/21 08/09/21 Acetaminophen [Acetaminophen Extra 1,000 mg PO Q8H PRN #60 tablet 08/10/21 Strength] Docusate Sodium 100Mg Capsule 100 - 200 mg PO BID PRN #60 cap 08/10/21 [Colace 100Mg Capsule] Ibuprofen [Motrin] 600 mg PO Q6H PRN #60 tab 08/10/21 - Allergies Allergies/Adverse Reactions: Allergies Allergy/AdvReac Type Severity Reaction Status Date / Time No Known Drug Allergies Allergy Verified 04/14/17 11:29 Physical - Abdominal Exam Vital Signs: Temp Pulse Resp BP Pulse Ox O2 Flow Rate 97.7 F 91 16 131/91 H 12/17/23 06:53 12/17/23 06:53 12/17/23 06:53 12/17/23 06:53 Plan for Labor - Plan For Labor I expect patient to be DC'd or transferred within 96 hours.: Yes
[2023-12-17] MEDS: OXYTOCIN/SODIUM CHLORIDE 500 ML IV SCH (09:10)
[2023-12-17] MEDS: LACTATED RINGERS 1,000 ML IV SCH (09:11)
[2023-12-17] MEDS: SODIUM CHLORIDE FLUSH 0.9% 10 ML SYRINGE IVP SCH (09:11)
[2023-12-17 09:43] LABS: BASOPHILS % (AUTO) 0.2 %; EOSINOPHILS % (AUTO) 0.3 %; HCT - HEMATOCRIT 37.5 % (37.0-47.0); LYMPHOCYTES # (AUTO) 1.5 10^3/uL (1.5-3.5); LYMPHOCYTES % (AUTO) 15.3 %; MEAN CORPUSCULAR HEMOGLOBIN 30.2 pg (27.0-31.0); MEAN CORPUSCULAR HGB CONC 34.7 g/dL (32.0-36.0); MEAN PLATELET VOLUME 11.1 fL (7.9-10.8); MONOCYTES # (AUTO) 0.5 10^3/uL (0.0-1.0); MONOCYTES % (AUTO) 5.4 %; NEUTROPHILS # (AUTO) 7.5 10^3/uL (1.5-6.6); NEUTROPHILS % (AUTO) 78.4 %; PLT - PLATELET COUNT 200 10^3/uL (130-450); RED BLOOD COUNT 4.31 10^6/uL (4.20-5.40); RED CELL DISTRIBUTION WIDTH 13.7 % (12.0-15.0); WHITE BLOOD COUNT 9.6 x10^3/uL (4.8-10.8)
[2023-12-17] MEDS: miSOPROStoL 100 MCG TABLET BC SCH (10:30)
--- NOTE | 2023-12-17 11:10 | ANESTHESIA ---
Pre-Anesthesia VS, & Labs - Diagnosis labor induction - Procedure labor epidural Vital Signs: Temp Pulse Resp BP Pulse Ox O2 Flow Rate 36.8 C 91 16 131/91 H 12/17/23 08:25 12/17/23 06:53 12/17/23 06:53 12/17/23 06:53 Height: 5 ft 7 in Weight (kg): 98.339 kg Body Mass Index: 33.9 BMI Classification: Obese - NPO Other (discussed clear liquids only after epidural placement) - Is Patient ?: Yes - Lab Results Current Lab Results: Laboratory Tests 12/17/23 10:40: POC Whole Bld Glucose 105 H 12/17/23 09:00: WBC 9.6, RBC 4.31, Hgb 13.0, Hct 37.5, MCV 87.0, MCH 30.2, MCHC 34.7, RDW 13.7, Plt Count 200, MPV 11.1 H, Neut # (Auto) 7.5 H, Lymph # (Auto) 1.5, Morrison # (Auto) 0.5, Eos # (Auto) 0.0, Baso # (Auto) 0.0, Absolute Nucleated RBC 0.00, Nucleated RBC % 0.0 Fish Bones: 12/17/23 09:00 Home Medications and Allergies Active Medications Acetaminophen (Acetaminophen 500 Mg Tablet) 1,000 mg PO Q6HR PRN PRN Reason: Pain or Fever > 38C (100.4F) Fentanyl (Fentanyl 100 Mcg/2 Ml Vial) 50 mcg IVP Q1H PRN PRN Reason: Severe Pain (score 7-10) Hydralazine HCl (Hydralazine Inj 20 Mg/Ml Vial) 10 mg IVP .ONCE PRN; Protocol PRN Reason: SBP> or= 160 OR DBP> or= 110 Hydralazine HCl (Hydralazine Inj 20 Mg/Ml Vial) 5 - 10 mg IVP Q20M PRN; Protocol PRN Reason: SBP> or= 160 OR DBP> or= 110 Oxytocin/Sodium Chloride (Pitocin/Sodium Chloride) 500 mls @ 999 mls/hr IV PRN PRN; Protocol PRN Reason: POST- HEMORR PREVENTION Tranexamic Acid (Tranexamic 1,000 Mg/100ml-Nacl) 1,000 mg in 100 mls @ 600 mls/hr IV Q30M PRN PRN Reason: EBL >1200mL and within 3hr Lactated Ringer's (Lr) 1,000 mls @ 125 mls/hr IV .Q8H [facility] Last Admin: 12/17/23 09:11 Dose: Not Given Lactated Ringer's (Lr) 1,000 mls @ 999 mls/hr IV PRN PRN PRN Reason: PER PHYSICIAN ORDER Oxytocin/Sodium Chloride (Pitocin/Sodium Chloride) 500 mls @ 1 mls/hr IV TITR S ; Protocol Last Admin: 12/17/23 09:10 Dose: Not Given Labetalol HCl (Labetalol 20 Mg/4 Ml Syringe) 20 mg IVP .ONCE PRN; Protocol PRN Reason: SBP> or= 160 OR DBP> or= 110 Labetalol HCl (Labetalol 20 Mg/4 Ml Syringe) 20 - 80 mg IVP Q10M PRN; Protocol PRN Reason: SBP> or= 160 OR DBP> or= 110 Labetalol HCl (Labetalol 20 Mg/4 Ml Syringe) 20 - 40 mg IVP Q10M PRN; Protocol PRN Reason: SBP> or= 160 OR DBP> or= 110 Lidocaine HCl (Lidocaine 1% 20 Ml Mdv) 20 ml ID .ONCE PRN PRN Reason: PERINEAL REPAIR Stop: 12/20/23 07:39 Methylergonovine Maleate (Methylergonovine 0.2 Mg/Ml Vial) 0.2 mg IM .ONCE PRN PRN Reason: Hemorrhage Misoprostol (Misoprostol 200 Mcg Tablet) 600 mcg BC .ONCE PRN PRN Reason: Hemorrhage Misoprostol (Misoprostol 200 Mcg Tablet) 800 mcg AK .ONCE PRN PRN Reason: Hemorrhage Misoprostol (Misoprostol 100 Mcg Tablet) 25 mcg BC Q4H [facility] Stop: 12/17/23 22:01 Last Admin: 12/17/23 10:30 Dose: 25 mcg Nifedipine (Nifedipine 10 Mg Capsule) 10 - 20 mg PO Q20M PRN; Protocol PRN Reason: SBP> or= 160 OR DBP> or= 110 Ondansetron HCl (Ondansetron Odt 4 Mg Tablet) 4 mg TL Q6HR PRN PRN Reason: Nausea / Vomiting Oxytocin (Oxytocin 10 Unit/Ml Vial) 10 unit IM .ONCE PRN PRN Reason: Step One if no IV access. Sodium Chloride (Sodium Chloride Flush 0.9% 10 Ml Syringe) 10 ml IVP Q8H [facility] Last Admin: 12/17/23 09:11 Dose: 10 ml Sodium Chloride (Sodium Chloride Flush 0.9% 10 Ml Syringe) 10 ml IVP PRN PRN PRN Reason: NEEDED PER PROVIDER ORDERS Terbutaline Sulfate (Terbutaline 1 Mg/Ml Vial) 0.25 mg SUBQ .ONCE PRN PRN Reason: Tachystole Aspirin EC [Ecotrin] 81 mg PO DAILY 08/09/21 Mesalamine [Lialda] 2.4 gm PO DAILY 08/09/21 Allergies/Adverse Reactions: Allergies Allergy/AdvReac Type Severity Reaction Status Date / Time No Known Drug Allergies Allergy Verified 04/14/17 11:29 Anes History & Medical History - Anesthetic History Anesthesia Complications: reports: No previous complications - Medical History Cardiovascular: reports: None Pulmonary: reports: None Smoking Status: Never smoker History of Cancer?: No - Surgical History General: reports: Colonoscopy - Obstetrical History : 3 Parity: 1 Events: reports: Gestational diabetes Complications: reports: Gestational diabetes, Other (AMA, RH negative, ulcerative colitis) Exam General: Alert, Oriented x3, Cooperative Dental: WNL Mouth Opening: Greater than 4 Fingerbreadths Neck Mobility: Normal Mallampati classification: II Respiratory: Lungs clear Cardiovascular: Regular rate Plan Anesthesia Type: Epidural Consent for Procedure(s) Verified and Reviewed: Yes Code Status: Attempt Resuscitation ASA classification: 2-Mild systemic disease Is this case an emergency?: No
--- NOTE | 2023-12-17 15:29 | PHARMACY PROGRESS NOTE ---
- Best Possible Medication History Admit Date and Time: 12/17/23 0739 Processed by: Pharmacy Medications reviewed in ED?: No Medication History completed: Yes Patient Interview: Pt unable to participate Secondary Source(s): Physician records, Insurance records As the person ultimately responsible for medication therapy, providers are able to order a medication from an existing home medication list in [facility] via the "Reconcile Routine" prior to Confirmation of that medication by claims support specialist. Such practice is discouraged except when the physician, in their clinical judgment, deems that a medical need exists for a medication without regard to previous use.
[2023-12-17] MEDS ORDERED: ROPIVACAINE 0.2% 200 MG/100 ML BAG EP ONE (17:45)
[2023-12-17] MEDS ORDERED: LIDOCAINE 2%-EPI 1:100000 20 ML MDV ONE (18:22)
[2023-12-17] MEDS ORDERED: diphenhydrAMINE INJ 50 MG/ML VIAL IVP PRN (18:42)
[2023-12-17] MEDS ORDERED: SIMETHICONE CHEW 80 MG TABLET PO PRN (18:42)
[2023-12-17] MEDS: ACETAMINOPHEN 500 MG TABLET PO PRN (19:01)
[2023-12-17] MEDS: IBUPROFEN 600 MG TABLET PO SCH (19:01)
--- NOTE | 2023-12-17 19:20 | DELIVERY NOTE ---
Delivery Note - Labor Labor: positive: Spontaneous, Augmented by oxytocin - Delivery Method Delivery Method: positive: Spontaneous vaginal delivery - Presentation Presentation: positive: Vertex, OA - occiput anterior - Nuchal Cord Nuchal Cord: positive: None - Anesthetic Anesthetic Type: Anesthetic: positive: Other (lidocaine with epi 2%) Volume: positive: 5cc - Amniotic Fluid Description Amniotic Fluid Description: positive: Clear - Episiotomy Type Episiotomy Type: positive: None - Laceration Laceration: positive: 2nd degree - Suture Suture Type: positive: Vicryl Suture Size: positive: 3-0 - Delivery Outcome Delivery Outcome: positive: Livebirth - [place] : positive: Placed in direct skin contact with mother, Bulb syringe, [place] used, Warmer used sex: positive: Male - Cord Cord: positive: 3 vessels - Placenta Placenta: positive: Intact, Spontaneous - Estimated Blood Loss Estimated Blood Loss (in cc): 200 - Post Delivery Events Post Delivery Events: positive: No post delivery events - Delivery Comments (Free Text/Narrative) Delivery Comments (Free Text/Narrative): patient presents with SROM at 36w6d. was not making progress so oxytocin was started. She was ready for epidural. DIRECTOR PHYSICAL placed epidural and gave test dose and patient was ready to push. They called me to come in and I arrived in 4 minutes, missing delivery of the baby by 1 min. Baby was vigorous when I got there. I delivered placenta. uterus contracted well. There was a small perineal laceration. I injected 2% lidocaine with epi and repaired in 2 layers. patient tolerated this well. Parents viewed placenta. Appeared normal. no complications. weight pending. Apgars were good.
[2023-12-18] MEDS: DOCUSATE SODIUM 100 MG CAPSULE PO SCH (01:00)
--- NOTE | 2023-12-18 20:27 | PROVIDER PROGRESS NOTE ---
Subjective - Prog Note Date Prog Note Date: 12/18/23 Prog Note Time: 10:00 - Subjective Pt reports feeling: Improved Subjective: feeling well. baby doing well. no concerns. Objective - Vital Signs/Intake & Output Reviewed Vital Signs: Yes Vital Signs: Vital Signs x48h Temp Pulse Resp BP Pulse Ox 12/18/23 16:37 98.4 F 70 16 117/63 12/18/23 12:44 99.0 F 69 18 130/65 96 Intake & Output: Intake & Output 12/15/23 12/16/23 12/17/23 12/18/23 23:59 23:59 23:59 23:59 Intake Total 982.900 300 Output Total 300 550 Balance 682.900 -250 - Objective General Appearance: positive: No acute distress Respiratory: positive: No respiratory distress - Lab Results Fish Bones: 12/17/23 09:00 Assessment/Plan - Problem List (1) Vaginal delivery Impression: routine recovery. given baby late , they will stay until tomorrow.
[2023-12-19 08:52] VITALS: BP 121/72; O2SAT 98
--- NOTE | 2023-12-19 09:10 | Discharge Plan ---
Discharge Plan Problem Reviewed?: Yes Disposition: Home, Self Care Condition: Good Diet: Regular Activity Restrictions: No Restrictions Shower Restrictions: No Instruction Topics: Vaginal After, Depression No Smoking: If you smoke, Please STOP! Call for help. Follow-up with: Shai Hopper MD [Family Provider] -
--- NOTE | 2023-12-19 09:10 | DISCHARGE SUMMARY ---
"Discharge Summary Admit Date: 12/17/23 Discharge Date: 12/19/23 Discharging Provider: Shai Hopper MD Code Status: Attempt Resuscitation Condition at Discharge: Good Discharge Disposition: 01 Home, Self Care - DIAGNOSES Admission Diagnoses: 36 weeks gestation , prelabor rupture of membranes Administer LH A2 GDM Ulcerative colitis Rh- Discharge Diagnoses with Status of Each Condition: Same Deliver live trevino Status post spontaneous vaginal delivery - HPI History of Present Illness: Subjective Patient reports she is doing well. Lochia appropriate. Denies heavy bleeding. Ambulating. Pelvic and abdominal pain well-controlled. Tolerating oral intake. Diet: Regular. Voiding without difficulty. Passing flatus. Denies BM. Patient is bonding with baby Breast feeding going well. Denies feeling lightheaded, dizzy or excessively fatigued. Objective General: Alert, oriented, no apparent distress. Cardiovascular: Regular rate. Regular rhythm. Lungs: No increased work of breathing. Abdomen: Uterus firm. Below umbilicus. No guarding or rebound. Extremities: No pain on palpation. No cords palpated. Distal pulses intact. - CONSULTS | PROCEDURES Consultations: Anesthesia for epidural Procedures: Spontaneous vaginal delivery - HOSPITAL COURSE Hospital Course: Patient was admitted at 36 weeks gestation for , prelabor rupture of membranes and augmented with oxytocin. She received an epidural for pain control. She progressed to complete and had an uncomplicated vaginal delivery. She had a small perineal laceration that was repaired at time of procedure. Po stpartum course was also unremarkable and she and her did well. They were discharged together on day 1. - ALLERGIES Allergies/Adverse Reactions: Allergies Allergy/AdvReac Type Severity Reaction Status Date / Time No Known Drug Allergies Allergy Verified 04/14/17 11:29 - MEDICATIONS Home Medications: Ambulatory Orders Medication Instructions Recorded Confirmed Aspirin EC [Ecotrin] 81 mg PO DAILY 08/09/21 12/17/23 Mesalamine [Lialda] 2.4 gm PO DAILY 08/09/21 12/17/23 Metformin HCl [Metformin ER 500 mg PO BIDWM 12/17/23 12/17/23 Gastric] - LABS Result Diagrams: 12/17/23 09:00 - FOLLOW UP Follow Up: With [facility] women's care in 1 week - TIME SPENT Time Spent in Discharge (Minutes): 20"
--- NOTE | 2023-12-19 15:41 | Labor Flowsheet ---
Labor Flowsheet Datetime Report Generated by CPN: 12/19/2023 15:41 Datetime: 12/19/2023 08:34 VITAL SIGNS NBP Sys/Jody/Mean (mmHg): 121 : 72 : 83 Pulse: 64 COMMUNICATION LaborFlag: Labor Datetime: 12/17/2023 18:54 SpO2 (%): 98 Datetime: 12/17/2023 18:12 UTERINE ACTIVITY Monitor Mode: External Frequency (min): 1-2 Quality: Strong Duration (sec): 30-60 Pattern: Normal: <= 5 Contractions in 10 Minutes Resting Tone (Palpate): Relaxed ASSESSMENT A Monitor Mode: External US FHR Baseline Rate : 145 Variability: Moderate 6-25 bpm Accelerations: None Decelerations: Variable Category: Category II Comments: intermittent monitoring d/t positioning/pushing efforts Datetime: 12/17/2023 18:08 VAGINAL EXAM Dilatation (cm): 10.0 Effacement (%): 100 Station: 3 Exam by: Ruben Ramesh RN Datetime: 12/17/2023 18:05 Epidural Procedure: Test Dose Datetime: 12/17/2023 18:00 Contraction Comments: unable to trace all ctx d/t positioning Datetime: 12/17/2023 17:50 MEDICATIONS Pitocin (milliunits): Increased to @ 4 ANESTHESIA Epidural Positioning: Sitting Datetime: 12/17/2023 17:47 Anesthesia Comments: M.Aube, IMPORT SPECIALIST at bedside Datetime: 12/17/2023 17:35 Medication Comments: Nitrous oxide started Datetime: 12/17/2023 16:12 I/O Interventions: Up to BR Datetime: 12/17/2023 15:22 Pitocin Checklist: No More than 1 Late Deceleration Occurred in Past 30 Minutes; No More than 2 Oneil iable Decelerations > 60 Seconds in Duration and decreasing >60 bpm in 30 minutes; No More than 5 [place]igh[place] rine Contractions in 10 Minutes for any 20 Minute Interval; Uterus Palpates Soft between Contractions Datetime: 12/17/2023 15:02 Vaginal Bleeding: None Cervix, Consistency: Moderate Cervix, Position: Posterior Datetime: 12/17/2023 12:57 Monitor Interventions for UA: [place] Adjusted Datetime: 12/17/2023 10:30 Cervical Ripening Agents: Cytotec @ Datetime: 12/17/2023 06:30 Stage of : OB Triage Datetime: 12/12/2023 12:20 PATIENT CARE Patient Position/Activity: Left Lateral Datetime: 12/09/2023 13:09 Patient Care Comments: vibro stim 3 seconds
== END 2023-12-19 12:30 | disposition home or self-care (01) | DRG 806 ==
LOC: WFO 06:42 → FBP 06:44 → WFO 07:38 → FBP 07:39
PROVIDERS: ADMIT Obstetrics & Gynecology; ATTEND Obstetrics & Gynecology
PROC: 10E0XZZ Delivery of Products of Conception, External Approach (ICD-10-PCS; principal; 2023-12-17)
PROC: 0KQM0ZZ Repair Perineum Muscle, Open Approach (ICD-10-PCS; 2023-12-17)
DX: O42.013 Preterm premature rupture of membranes, onset of labor within 24 hours of rupture, third trimester (principal); K51.90 Ulcerative colitis, unspecified, without complications; Z37.0 Single live birth; O99.62 Diseases of the digestive system complicating childbirth; O24.425 Gestational diabetes mellitus in childbirth, controlled by oral hypoglycemic drugs; O70.1 Second degree perineal laceration during delivery; Z3A.36 36 weeks gestation of pregnancy; Z79.82 Long term (current) use of aspirin; Z79.899 Other long term (current) drug therapy
CPT/HCPCS: 36415; 59409; 84112; 85025; 86850; 86870; 86900; 86901; 99215; A9270; J7120

== ENCOUNTER 2023-12-26 12:03 | Outpatient (CLI) | payer OTHER ==
[2023-12-26 12:19] LABS: HCT - HEMATOCRIT 39.6 % (37.0-47.0); HGB - HEMOGLOBIN 13.4 g/dL (12.0-16.0); MEAN CORPUSCULAR HEMOGLOBIN 30.1 pg (27.0-31.0); MEAN CORPUSCULAR HGB CONC 33.8 g/dL (32.0-36.0); MEAN PLATELET VOLUME 9.7 fL (7.9-10.8); RED BLOOD COUNT 4.45 10^6/uL (4.20-5.40); RED CELL DISTRIBUTION WIDTH 13.1 % (12.0-15.0); WHITE BLOOD COUNT 8.2 x10^3/uL (4.8-10.8)
== END 2023-12-26 12:04 | disposition home or self-care (01) ==
LOC: LAB 12:03
PROVIDERS: ATTEND Obstetrics & Gynecology
DX: O16.5 Unspecified maternal hypertension, complicating the puerperium (principal)
CPT/HCPCS: 36415; 85027